=== PATIENT | male | born 1960 | race Two or more races ===

== ENCOUNTER 2018-03-31 17:23 | Emergency (ER) | payer MEDICAID ==
[~2018-03-31] VITALS: Ht 182.9 cm; Wt 113.0 kg
[~2018-03-31 17:23] MED LIST: LISI2.5T47 PO
[2018-03-31 18:47] LABS: BASOPHILS % 1.4 % (0.0-2.0); EOSINOPHILS % 2.3 % (0.0-5.0); HEMATOCRIT. 44.8 % (42.0-52.0); HEMOGLOBIN. 15.2 g/dL (14.0-18.0); LYMPHOCYTES % 28.1 % (20.0-50.0); MEAN CORPUSCULAR VOLUME 88.9 fL (80.0-94.0); MEAN PLATELET VOLUME 8.4 fl (7.4-10.4); MONOCYTES % 5.9 % (2.0-8.0); NEUTROPHILS % 62.3 % (40.0-76.0); PLATELET 246 x1000/uL (130-400); RED BLOOD CELL COUNT 5.04 mill/uL (4.7-6.1); RED CELL DISTRIBUTION WIDTH 15.1 % (11.6-14.6)
[2018-03-31 18:51] LABS: PROTHROMBIN TIME 10.4 sec (9.1-11.1)
[2018-03-31 18:57] LABS: CLARITY URINE CLEAR (CLEAR); COLOR URINE YELLOW (YELLOW); KETONES URINE NEGATIVE (NEGATIVE); LEUKOCYTE ESTERASE URINE NEGATIVE (NEGATIVE); NITRITE URINE NEGATIVE (NEGATIVE); OCCULT BLOOD URINE NEGATIVE (NEGATIVE); PROTEIN URINE TRACE (NEGATIVE); UROBILINOGEN URINE 0.2 E.U./dL (0.2-1.0)
[2018-03-31 19:06] LABS: CHLORIDE 112 mEq/L (98-107)
[2018-03-31 19:11] LABS: ETHANOL BLOOD 258 mg/dL
[2018-03-31] MEDS ORDERED: LACTULOSE 20G/30ML UDC PO ONE (19:15)
[2018-03-31 19:21] LABS: *AMPHETAMINES SCREEN URINE NEGATIVE (NEGATIVE); *BARBITURATES SCREEN URINE NEGATIVE (NEGATIVE); *BENZODIAZEPINES SCREEN URINE NEGATIVE (NEGATIVE); *COCAINE SCREEN URINE NEGATIVE (NEGATIVE); METHADONE URINE SCREEN NEGATIVE (NEGATIVE); OPIATES URINE SCREEN NEGATIVE (NEGATIVE); PHENCYCLIDINE URINE SCREEN NEGATIVE (NEGATIVE)
[2018-03-31 19:22] LABS: CANNABINOID URINE SCREEN NEGATIVE (NEGATIVE)
[2018-03-31 20:39] VITALS: BP 146/82
== END 2018-03-31 20:54 | disposition home or self-care (01) ==
LOC: ER 17:23
DX: F10.129 Alcohol abuse with intoxication, unspecified (principal); Y90.8 Blood alcohol level of 240 mg/100 ml or more; R20.0 Anesthesia of skin; I10 Essential (primary) hypertension; Z95.1 Presence of aortocoronary bypass graft; Z98.84 Bariatric surgery status
CPT/HCPCS: 36415; 70450; 80053; 80305; 81003; 82140; 82962; 84484; 85025; 85610; 93005; 99284; G0482

== ENCOUNTER 2019-07-08 09:10 | Emergency (ER) | payer MEDICAID ==
[~2019-07-08] VITALS: Ht 175.3 cm; Wt 104.0 kg
[2019-07-08 09:43] VITALS: BP 170/100
[2019-07-08] MEDS ORDERED: IBUPROFEN 600MG TABLET PO ONE (11:15)
[2019-07-08] MEDS ORDERED: DIAZEPAM 5 MG TABLET PO ONE (11:15)
== END 2019-07-08 12:42 | disposition home or self-care (01) ==
LOC: ER 09:10
DX: M54.5 Low back pain (principal); I11.9 Hypertensive heart disease without heart failure; Z95.1 Presence of aortocoronary bypass graft; Z98.84 Bariatric surgery status; Z79.899 Other long term (current) drug therapy
CPT/HCPCS: 72100; 99283

== ENCOUNTER 2019-07-13 16:58 | Inpatient (IN) | payer MEDICAID ==
[~2019-07-13] VITALS: Ht 175.3 cm; Wt 104.3 kg
[2019-07-13 19:28] LABS: CHLORIDE 106 mEq/L (98-107)
[2019-07-13 19:29] LABS: PROTHROMBIN TIME 10.6 sec (9.6-11.0)
[2019-07-13 19:41] LABS: BASOPHILS % 1.3 % (0.0-2.0); EOSINOPHILS % 3.3 % (0.0-5.0); HEMATOCRIT. 43.3 % (42.0-52.0); HEMOGLOBIN. 14.8 g/dL (14.0-18.0); LYMPHOCYTES % 21.2 % (20.0-50.0); MEAN CORPUSCULAR HEMOGLOBIN 30.4 pg (28.0-32.0); MEAN CORPUSCULAR VOLUME 88.8 fL (80.0-94.0); MEAN PLATELET VOLUME 8.5 fl (7.4-10.4); MONOCYTES % 9.4 % (2.0-8.0); NEUTROPHILS % 64.8 % (40.0-76.0); PLATELET 226 x1000/uL (130-400); RED BLOOD CELL COUNT 4.88 mill/uL (4.7-6.1); RED CELL DISTRIBUTION WIDTH 14.5 % (11.6-14.6)
[2019-07-13 21:47] LABS: CLARITY URINE CLEAR (CLEAR); COLOR URINE YELLOW (YELLOW); KETONES URINE NEGATIVE (NEGATIVE); LEUKOCYTE ESTERASE URINE NEGATIVE (NEGATIVE); NITRITE URINE NEGATIVE (NEGATIVE); OCCULT BLOOD URINE NEGATIVE (NEGATIVE); PROTEIN URINE TRACE (NEGATIVE)
[2019-07-13] MEDS ORDERED: SODIUM CHLORIDE 0.9% 1,000 ML IV ONE (22:53)
[2019-07-13] MEDS ORDERED: MORPHINE SULFATE 4 MG/ML CPJ (NOT FOR IM USE) IV STA (22:53)
[2019-07-13] MEDS ORDERED: ONDANSETRON HCL 4MG/2ML INJ IV STA (22:53)
[2019-07-14] MEDS ORDERED: CLONIDINE 0.2MG TABLET PO ONE (00:15)
[2019-07-14] MEDS: HYDRALAZINE 20MG/ML VIAL IV PRN (01:50)
[2019-07-14] MEDS: MORPHINE SULFATE 4 MG/ML CPJ (NOT FOR IM USE) IV PRN ×5 (05:33→23:07)
[2019-07-14] MEDS ORDERED: CLONIDINE 0.1MG TABLET PO PRN (08:45)
[2019-07-14] MEDS ORDERED: ONDANSETRON HCL 4MG/2ML INJ IV PRN (08:45)
[2019-07-14] MEDS ORDERED: IPRATROPIUM/ALBUTEROL 0.5-3(2.5)MG/3ML NEB HHN PRN (08:45)
[2019-07-14] MEDS ORDERED: ENOXAPARIN 40MG/0.4ML SYR SUBCUT SCH (08:45)
[2019-07-14] MEDS ORDERED: ENOXAPARIN 30MG/0.3ML SYR SUBCUT SCH (09:30)
[2019-07-14] MEDS: DOCUSATE SODIUM 100MG CAPSULE PO SCH (21:00)
[2019-07-14 21:15] VITALS: BP 170/98
[2019-07-15] VITALS: BP 139/89
[2019-07-15] MEDS ORDERED: LISI40TA4 PO (02:03)
[2019-07-15 04:00] VITALS: BP 150/90
[2019-07-15] MEDS: MORPHINE SULFATE 4 MG/ML CPJ (NOT FOR IM USE) IV PRN ×3 (04:54→21:12)
[2019-07-15] MEDS: ENOXAPARIN 100MG/ML SYR SUBCUT SCH (05:03)
[2019-07-15 08:00] VITALS: BP 162/122
[2019-07-15] MEDS: HYDRALAZINE 20MG/ML VIAL IV PRN (08:16)
[2019-07-15] MEDS: DOCUSATE SODIUM 100MG CAPSULE PO SCH ×2 (08:34→17:00)
[2019-07-15 08:44] LABS: BASOPHILS % 1.4 % (0.0-2.0); EOSINOPHILS % 2.9 % (0.0-5.0); HEMATOCRIT. 41.8 % (42.0-52.0); HEMOGLOBIN. 14.4 g/dL (14.0-18.0); LYMPHOCYTES % 20.3 % (20.0-50.0); MEAN CORPUSCULAR HEMOGLOBIN 30.6 pg (28.0-32.0); MEAN CORPUSCULAR VOLUME 89.1 fL (80.0-94.0); MEAN PLATELET VOLUME 8.6 fl (7.4-10.4); MONOCYTES % 9.3 % (2.0-8.0); NEUTROPHILS % 66.1 % (40.0-76.0); PLATELET 216 x1000/uL (130-400); RED BLOOD CELL COUNT 4.69 mill/uL (4.7-6.1); RED CELL DISTRIBUTION WIDTH 14.7 % (11.6-14.6)
[2019-07-15 09:11] LABS: CHLORIDE 106 mEq/L (98-107); LDL CHOLESTEROL 71 mg/dL (5-100)
[2019-07-15 09:15] LABS: HDL CHOLESTEROL 31 mg/dL (40-59)
[2019-07-15] MEDS ORDERED: POTASSIUM CHLORIDE 20MEQ TABLET SR PO NR (11:45)
[2019-07-15] MEDS ORDERED: AMLODIPINE 5MG TABLET PO NR (11:45)
[2019-07-15 12:00] VITALS: BP 161/113
[2019-07-15 14:01] LABS: HEPATITIS B SURFACE ANTIGEN NEGATIVE
[2019-07-15] MEDS: CLONIDINE 0.1MG TABLET PO SCH ×3 (14:06→21:11)
[2019-07-15 14:30] LABS: HEPATITIS A AB IGM NEGATIVE (NEGATIVE)
[2019-07-15] MEDS ORDERED: SIMETHICONE 80MG TABLET CHEW PO PRN (15:15)
[2019-07-15 16:00] VITALS: BP 144/100
[2019-07-15 20:00] VITALS: BP 141/82
[2019-07-15] MEDS: AMLODIPINE 5MG TABLET PO SCH (21:11)
[2019-07-16] VITALS (7 sets, daily range): BP systolic 126–151; BP diastolic 85–102
[2019-07-16] MEDS: HYDROCODONE/ACETAMINOPHEN 5/325MG TABLET PO PRN ×2 (02:48→08:22)
[2019-07-16 06:21] LABS: HEMATOCRIT. 39.5 % (42.0-52.0); HEMOGLOBIN. 13.7 g/dL (14.0-18.0); LYMPHOCYTES % 20.9 % (20.0-50.0); MEAN CORPUSCULAR HEMOGLOBIN 30.8 pg (28.0-32.0); MEAN CORPUSCULAR VOLUME 88.6 fL (80.0-94.0); MEAN PLATELET VOLUME 8.2 fl (7.4-10.4); MONOCYTES % 13.5 % (2.0-8.0); NEUTROPHILS % 60.6 % (40.0-76.0); PLATELET 201 x1000/uL (130-400); RED BLOOD CELL COUNT 4.45 mill/uL (4.7-6.1); RED CELL DISTRIBUTION WIDTH 14.3 % (11.6-14.6)
[2019-07-16] MEDS: ENOXAPARIN 100MG/ML SYR SUBCUT SCH (07:40)
[2019-07-16] MEDS: CLONIDINE 0.1MG TABLET PO SCH ×3 (07:40→21:33)
[2019-07-16 08:04] LABS: CHLORIDE 105 mEq/L (98-107)
[2019-07-16] MEDS: DOCUSATE SODIUM 250MG CAPSULE PO SCH ×2 (08:21→17:23)
[2019-07-16] MEDS: AMLODIPINE 5MG TABLET PO SCH ×2 (08:22→21:33)
[2019-07-16] MEDS ORDERED: POTASSIUM CHLORIDE 20MEQ TABLET SR PO NR (12:00)
[2019-07-16] MEDS: CYCLOBENZAPRINE 10MG TABLET PO PRN (17:24)
[2019-07-17] VITALS (7 sets, daily range): BP systolic 117–153; BP diastolic 69–115
[2019-07-17] MEDS: HYDRALAZINE 20MG/ML VIAL IV PRN (00:04)
[2019-07-17] MEDS: CYCLOBENZAPRINE 10MG TABLET PO PRN ×2 (00:09→22:16)
[2019-07-17] MEDS: CLONIDINE 0.1MG TABLET PO SCH ×3 (06:13→21:03)
[2019-07-17] MEDS: ENOXAPARIN 100MG/ML SYR SUBCUT SCH (06:13)
[2019-07-17 06:50] LABS: BASOPHILS % 1.3 % (0.0-2.0); EOSINOPHILS % 4.6 % (0.0-5.0); HEMATOCRIT. 39.7 % (42.0-52.0); HEMOGLOBIN. 13.7 g/dL (14.0-18.0); LYMPHOCYTES % 21.9 % (20.0-50.0); MEAN CORPUSCULAR HEMOGLOBIN 30.6 pg (28.0-32.0); MEAN CORPUSCULAR VOLUME 88.7 fL (80.0-94.0); MEAN PLATELET VOLUME 8.6 fl (7.4-10.4); MONOCYTES % 13.2 % (2.0-8.0); PLATELET 214 x1000/uL (130-400); RED BLOOD CELL COUNT 4.48 mill/uL (4.7-6.1); RED CELL DISTRIBUTION WIDTH 14.5 % (11.6-14.6)
[2019-07-17 07:29] LABS: CHLORIDE 107 mEq/L (98-107)
[2019-07-17] MEDS: DOCUSATE SODIUM 250MG CAPSULE PO SCH ×2 (08:19→18:39)
[2019-07-17] MEDS: AMLODIPINE 5MG TABLET PO SCH (08:19)
[2019-07-17] MEDS: HYDROCODONE/ACETAMINOPHEN 5/325MG TABLET PO PRN ×2 (11:46→21:04)
[2019-07-17] MEDS ORDERED: POTASSIUM CHLORIDE 20MEQ TABLET SR PO SCH (13:45)
[2019-07-17] MEDS: HYDRALAZINE HCL 100MG TABLET PO SCH ×2 (14:03→21:03)
[2019-07-17] MEDS ORDERED: POTASSIUM CHLORIDE 20MEQ TABLET SR PO ONE (14:45)
[2019-07-17] MEDS: AMIODARONE HCL 200 MG TABLET PO SCH ×2 (16:32→21:03)
[2019-07-17] MEDS: DILTIAZEM HCL 90MG TABLET PO SCH (18:39)
[2019-07-18] VITALS: BP_SYST 130; BP_DIAS 130; BP_DIAS 64
[2019-07-18] MEDS: DILTIAZEM HCL 90MG TABLET PO SCH ×3 (00:37→12:53)
[2019-07-18 04:00] VITALS: BP 111/64
[2019-07-18 05:30] VITALS: BP 113/74
[2019-07-18] MEDS: ENOXAPARIN 100MG/ML SYR SUBCUT SCH (05:44)
[2019-07-18] MEDS: CLONIDINE 0.1MG TABLET PO SCH ×2 (05:47→13:25)
[2019-07-18] MEDS: HYDRALAZINE HCL 100MG TABLET PO SCH ×2 (05:48→13:24)
[2019-07-18 06:52] LABS: EOSINOPHILS % 4.6 % (0.0-5.0); HEMATOCRIT. 38.6 % (42.0-52.0); HEMOGLOBIN. 12.9 g/dL (14.0-18.0); LYMPHOCYTES % 21.5 % (20.0-50.0); MEAN CORPUSCULAR HEMOGLOBIN 30.4 pg (28.0-32.0); MEAN CORPUSCULAR VOLUME 90.6 fL (80.0-94.0); MEAN PLATELET VOLUME 8.5 fl (7.4-10.4); MONOCYTES % 13.2 % (2.0-8.0); NEUTROPHILS % 59.7 % (40.0-76.0); PLATELET 230 x1000/uL (130-400); RED BLOOD CELL COUNT 4.26 mill/uL (4.7-6.1); RED CELL DISTRIBUTION WIDTH 14.8 % (11.6-14.6)
[2019-07-18 06:59] LABS: CHLORIDE 107 mEq/L (98-107)
[2019-07-18 08:00] VITALS: BP 121/86
[2019-07-18] MEDS: AMIODARONE HCL 200 MG TABLET PO SCH (08:01)
[2019-07-18] MEDS: DOCUSATE SODIUM 250MG CAPSULE PO SCH (08:01)
[2019-07-18 12:00] VITALS: BP 129/77
[2019-07-18] MEDS ORDERED: AMI2 PO (12:32)
[2019-07-18] MEDS ORDERED: DILT360T13 MT (12:32)
[2019-07-18] MEDS ORDERED: CLON0.1T14 PO (12:32)
[2019-07-18 14:12] VITALS: BP 129/77
== END 2019-07-18 14:45 | disposition home or self-care (01) ==
LOC: ER 17:02 → 6WST 22:40 → EDBEDREQ 22:42 → EDBEDREQTM 22:42 → ENRESERV 22:46 → CANRESERV 22:46 → EDBEDREQDT 07-14 05:08 → EDBEDREQTM 07-14 05:08 → EDBEDREQSVC 07-14 05:08 → ENRESERV 07-14 20:38
PROVIDERS: ADMIT Internal Medicine; ATTEND Internal Medicine
DX: K80.70 Calculus of gallbladder and bile duct without cholecystitis without obstruction (principal); K76.0 Fatty (change of) liver, not elsewhere classified; I50.9 Heart failure, unspecified; I13.0 Hypertensive heart and chronic kidney disease with heart failure and stage 1 through stage 4 chronic kidney disease, or unspecified chronic kidney disease; I48.92 Unspecified atrial flutter; I48.0 Paroxysmal atrial fibrillation; M62.838 Other muscle spasm; E66.09 Other obesity due to excess calories; E78.5 Hyperlipidemia, unspecified; F17.210 Nicotine dependence, cigarettes, uncomplicated; J44.9 Chronic obstructive pulmonary disease, unspecified; N18.9 Chronic kidney disease, unspecified; I73.9 Peripheral vascular disease, unspecified; E78.1 Pure hyperglyceridemia; E87.6 Hypokalemia; Z79.01 Long term (current) use of anticoagulants; Z86.718 Personal history of other venous thrombosis and embolism; Z82.3 Family history of stroke; Z82.49 Family history of ischemic heart disease and other diseases of the circulatory system; Z95.1 Presence of aortocoronary bypass graft; Z98.84 Bariatric surgery status; Z68.34 Body mass index [BMI] 34.0-34.9, adult
CPT/HCPCS: 36415; 74176; 76700; 80048; 80053; 80061; 80307; 81003; 83735; 84100; 84443; 84484; 85025; 86705; 86709; 86803; 87340; 93005; 93306; 93970; 96374; 97162; 99291; J0360; J1650; J2270; J7030

== ENCOUNTER 2021-11-19 15:52 | Inpatient (IN) | payer MEDICAID, OTHER ==
[~2021-11-19] VITALS: Ht 175.3 cm; Wt 96.0 kg
[~2021-11-19 15:52] MED LIST changes: +AMI2 PO; +CLON0.1T14 PO; +DILT360T13 MT; -LISI2.5T47 PO
[2021-11-19] MEDS ORDERED: DILTIAZEM HCL 5MG/ML 5ML VIAL IV ONE (17:00)
[2021-11-19 17:54] LABS: BASOPHILS % 0.9 % (0.0-2.0); EOSINOPHILS % 2.4 % (0.0-5.0); LYMPHOCYTES % 14.8 % (20.0-50.0); MEAN CORPUSCULAR HEMOGLOBIN 29.9 pg (28.0-32.0); MEAN CORPUSCULAR VOLUME 89.8 fL (80.0-94.0); MEAN PLATELET VOLUME 7.9 fl (7.4-10.4); MONOCYTES % 10.9 % (2.0-8.0); PLATELET 191 x1000/uL (130-400); RED BLOOD CELL COUNT 4.68 mill/uL (4.7-6.1); RED CELL DISTRIBUTION WIDTH 15.8 % (11.6-14.6)
[2021-11-19 18:02] LABS: CHLORIDE 111 mEq/L (98-107)
[2021-11-19 18:03] LABS: INR 1.1; PROTHROMBIN TIME 11.5 sec (9.6-11.0)
[2021-11-19] MEDS ORDERED: DILTIAZEM HCL 30MG TABLET PO ONE (18:45)
[2021-11-19] MEDS ORDERED: ASPIRIN 325MG TABLET PO ONE (19:00)
[2021-11-19] MEDS ORDERED: FUROSEMIDE 40MG/4ML VIAL IVP ONE (19:15)
[2021-11-20 02:00] VITALS: BP 191/136
[2021-11-20 04:00] VITALS: BP 183/139
[2021-11-20] MEDS ORDERED: NALOXONE HCL 0.4MG/ML VIAL IV PRN (04:00)
[2021-11-20] MEDS: CLONIDINE 0.1MG TABLET PO PRN ×2 (04:09→20:13)
[2021-11-20] MEDS: HYDROCODONE/ACETAMINOPHEN 5/325MG TABLET PO PRN ×3 (04:09→20:10)
[2021-11-20 08:00] VITALS: BP 196/140
[2021-11-20] MEDS: FUROSEMIDE 40MG/4ML VIAL IVP SCH ×2 (08:21→20:10)
[2021-11-20] MEDS ORDERED: LISINOPRIL 10MG TABLET PO SCH (09:00)
[2021-11-20 09:48] LABS: BASOPHILS % 0.9 % (0.0-2.0); EOSINOPHILS % 2.7 % (0.0-5.0); HEMATOCRIT. 43.3 % (42.0-52.0); HEMOGLOBIN. 14.6 g/dL (14.0-18.0); LYMPHOCYTES % 13.9 % (20.0-50.0); MEAN CORPUSCULAR HEMOGLOBIN 29.9 pg (28.0-32.0); MEAN CORPUSCULAR VOLUME 88.5 fL (80.0-94.0); MEAN PLATELET VOLUME 7.9 fl (7.4-10.4); MONOCYTES % 11.6 % (2.0-8.0); NEUTROPHILS % 70.9 % (40.0-76.0); PLATELET 195 x1000/uL (130-400)
[2021-11-20 09:58] LABS: CHLORIDE 107 mEq/L (98-107)
[2021-11-20 12:00] VITALS: BP 134/99
[2021-11-20] MEDS ORDERED: POTASSIUM CHLORIDE 20MEQ TABLET SR PO SCH (13:45)
[2021-11-20] MEDS ORDERED: DIGOXIN 125MCG TABLET PO SCH (18:00)
[2021-11-20] MEDS: ENOXAPARIN 30MG/0.3ML SYR SUBCUT SCH ×2 (18:48→20:10)
[2021-11-20 20:00] VITALS: BP 205/133
[2021-11-20] MEDS: HYDRALAZINE 20MG/ML VIAL IV PRN (23:38)
[2021-11-21] VITALS (7 sets, daily range): BP systolic 125–221; BP diastolic 104–145
[2021-11-21] MEDS ORDERED: LISI40TA13 PO (02:01)
[2021-11-21] MEDS ORDERED: blood thinner (02:02)
[2021-11-21] MEDS: CLONIDINE 0.1MG TABLET PO PRN ×2 (02:28→14:11)
[2021-11-21] MEDS: HYDROCODONE/ACETAMINOPHEN 5/325MG TABLET PO PRN ×2 (02:29→09:05)
[2021-11-21 06:20] LABS: BASOPHILS % 0.6 % (0.0-2.0); EOSINOPHILS % 0.5 % (0.0-5.0); HEMATOCRIT. 41.3 % (42.0-52.0); HEMOGLOBIN. 13.9 g/dL (14.0-18.0); LYMPHOCYTES % 9.5 % (20.0-50.0); MEAN CORPUSCULAR HEMOGLOBIN 29.9 pg (28.0-32.0); MEAN CORPUSCULAR VOLUME 88.6 fL (80.0-94.0); MEAN PLATELET VOLUME 8.1 fl (7.4-10.4); MONOCYTES % 14.9 % (2.0-8.0); NEUTROPHILS % 74.5 % (40.0-76.0); PLATELET 202 x1000/uL (130-400); RED BLOOD CELL COUNT 4.67 mill/uL (4.7-6.1); RED CELL DISTRIBUTION WIDTH 15.8 % (11.6-14.6)
[2021-11-21 06:24] LABS: CHLORIDE 105 mEq/L (98-107)
[2021-11-21] MEDS: FUROSEMIDE 40MG/4ML VIAL IVP SCH ×2 (09:00→21:38)
[2021-11-21] MEDS: LISINOPRIL 40MG TABLET PO SCH (09:03)
[2021-11-21] MEDS: ENOXAPARIN 30MG/0.3ML SYR SUBCUT SCH ×2 (09:04→21:39)
[2021-11-21] MEDS ORDERED: HYDRALAZINE HCL 25MG TABLET PO SCH ×2 (09:30→17:30)
[2021-11-21] MEDS: MORPHINE SULFATE 2 MG/ML CPJ (NOT FOR IM USE) IV PRN ×3 (11:47→21:39)
[2021-11-21] MEDS: HYDRALAZINE 20MG/ML VIAL IV PRN ×2 (13:44→21:40)
[2021-11-21] MEDS ORDERED: MORPHINE SULFATE 2 MG/ML CPJ (NOT FOR IM USE) IV NR (16:30)
[2021-11-21] MEDS: DILTIAZEM HCL 60MG TABLET PO SCH (16:49)
[2021-11-21] MEDS: HYDRALAZINE HCL 100MG TABLET PO SCH (17:28)
[2021-11-21] MEDS: DIGOXIN 250MCG TABLET PO SCH (17:28)
[2021-11-21] MEDS ORDERED: DILTIAZEM HCL 60MG TABLET PO SCH (18:00)
[2021-11-21 18:19] LABS: T4 FREE 1.3 ng/dL (0.76-1.46)
[2021-11-21] MEDS: CLONIDINE 0.2MG TABLET PO SCH (21:39)
[2021-11-22] VITALS: BP 138/93
[2021-11-22] MEDS: DILTIAZEM HCL 60MG TABLET PO SCH ×2 (00:46→05:56)
[2021-11-22] MEDS: HYDRALAZINE HCL 100MG TABLET PO SCH ×3 (03:36→17:40)
[2021-11-22 04:00] VITALS: BP 130/94
[2021-11-22] MEDS: CLONIDINE 0.2MG TABLET PO SCH ×3 (05:57→21:02)
[2021-11-22 07:39] LABS: HEMATOCRIT. 41.6 % (42.0-52.0); HEMOGLOBIN. 13.9 g/dL (14.0-18.0); MEAN CORPUSCULAR HEMOGLOBIN 29.6 pg (28.0-32.0); MEAN CORPUSCULAR VOLUME 88.8 fL (80.0-94.0); MEAN PLATELET VOLUME 8.7 fl (7.4-10.4); PLATELET 209 x1000/uL (130-400); RED BLOOD CELL COUNT 4.69 mill/uL (4.7-6.1); RED CELL DISTRIBUTION WIDTH 16.3 % (11.6-14.6)
[2021-11-22 07:46] LABS: CHLORIDE 103 mEq/L (98-107)
[2021-11-22 08:00] VITALS: BP 138/87
[2021-11-22] MEDS ORDERED: POTASSIUM CHLORIDE 20MEQ TABLET SR PO NR (09:15)
[2021-11-22] MEDS: ENOXAPARIN 30MG/0.3ML SYR SUBCUT SCH ×2 (09:30→21:01)
[2021-11-22] MEDS: FUROSEMIDE 40MG/4ML VIAL IVP SCH ×2 (09:30→21:01)
[2021-11-22] MEDS: HYDROCODONE/ACETAMINOPHEN 5/325MG TABLET PO PRN (09:31)
[2021-11-22] MEDS: LISINOPRIL 40MG TABLET PO SCH (09:31)
[2021-11-22 11:05] LABS: PLATELET ESTIMATE NORMAL
[2021-11-22 12:00] VITALS: BP 157/76
[2021-11-22] MEDS: CLONIDINE 0.1MG TABLET PO PRN (13:37)
[2021-11-22] MEDS: DILTIAZEM HCL 90MG TABLET PO SCH ×2 (13:37→17:40)
[2021-11-22] MEDS: MORPHINE SULFATE 2 MG/ML CPJ (NOT FOR IM USE) IV PRN (13:38)
[2021-11-22 16:00] VITALS: BP 133/74
[2021-11-22] MEDS: DIGOXIN 250MCG TABLET PO SCH (17:40)
[2021-11-22] MEDS: ACETAMINOPHEN 500MG TABLET PO PRN (17:41)
[2021-11-22] MEDS ORDERED: SPIR25TA6 PO (17:53)
[2021-11-22 20:00] VITALS: BP 136/76
[2021-11-23] VITALS: BP 121/68
[2021-11-23] MEDS: DILTIAZEM HCL 90MG TABLET PO SCH ×4 (00:54→17:05)
[2021-11-23] MEDS: HYDRALAZINE HCL 100MG TABLET PO SCH ×3 (00:55→17:05)
[2021-11-23 04:00] VITALS: BP 122/72
[2021-11-23] MEDS: CLONIDINE 0.2MG TABLET PO SCH ×3 (05:39→20:21)
[2021-11-23 05:41] LABS: HEMATOCRIT. 40.6 % (42.0-52.0); HEMOGLOBIN. 13.7 g/dL (14.0-18.0); MEAN CORPUSCULAR HEMOGLOBIN 29.9 pg (28.0-32.0); MEAN CORPUSCULAR VOLUME 88.6 fL (80.0-94.0); PLATELET 235 x1000/uL (130-400); RED BLOOD CELL COUNT 4.59 mill/uL (4.7-6.1)
[2021-11-23 07:47] VITALS: BP 116/69
[2021-11-23] MEDS: FUROSEMIDE 40MG/4ML VIAL IVP SCH (08:14)
[2021-11-23] MEDS: ACETAMINOPHEN 500MG TABLET PO PRN ×2 (08:15→21:22)
[2021-11-23] MEDS: ENOXAPARIN 30MG/0.3ML SYR SUBCUT SCH (08:15)
[2021-11-23] MEDS: LISINOPRIL 40MG TABLET PO SCH (08:15)
[2021-11-23 11:13] LABS: PLATELET ESTIMATE NORMAL
[2021-11-23 11:33] VITALS: BP 111/75
[2021-11-23 15:40] VITALS: BP 115/73
[2021-11-23 17:02] LABS: CLARITY URINE CLOUDY (CLEAR); COLOR URINE DARK YELLOW (YELLOW); KETONES URINE TRACE (NEGATIVE); LEUKOCYTE ESTERASE URINE NEGATIVE (NEGATIVE); NITRITE URINE NEGATIVE (NEGATIVE); OCCULT BLOOD URINE NEGATIVE (NEGATIVE); PROTEIN URINE 2+ (NEGATIVE); SPECIFIC GRAVITY URINE 1.018 (1.005-1.030)
[2021-11-23] MEDS: DIGOXIN 250MCG TABLET PO SCH (17:04)
[2021-11-23] MEDS: ENOXAPARIN 100MG/ML SYR SUBCUT SCH (17:04)
[2021-11-23 20:00] VITALS: BP 120/71
[2021-11-24] VITALS: BP 134/83
[2021-11-24] MEDS: DILTIAZEM HCL 90MG TABLET PO SCH ×4 (00:50→17:10)
[2021-11-24] MEDS: HYDRALAZINE HCL 100MG TABLET PO SCH ×3 (02:00→17:10)
[2021-11-24 04:00] VITALS: BP 154/83
[2021-11-24] MEDS: ENOXAPARIN 100MG/ML SYR SUBCUT SCH ×2 (05:52→17:10)
[2021-11-24] MEDS: CLONIDINE 0.2MG TABLET PO SCH ×2 (05:52→13:07)
[2021-11-24 07:38] LABS: HEMATOCRIT. 40.4 % (42.0-52.0); HEMOGLOBIN. 13.4 g/dL (14.0-18.0); MEAN CORPUSCULAR HEMOGLOBIN 29.5 pg (28.0-32.0); MEAN CORPUSCULAR VOLUME 88.7 fL (80.0-94.0); MEAN PLATELET VOLUME 9.2 fl (7.4-10.4); PLATELET 295 x1000/uL (130-400); RED BLOOD CELL COUNT 4.56 mill/uL (4.7-6.1); RED CELL DISTRIBUTION WIDTH 16.3 % (11.6-14.6)
[2021-11-24 08:09] VITALS: BP 134/81
[2021-11-24 08:25] LABS: DIGOXIN 1.2 ng/mL (0.9-2.0); PHOSPHORUS 3.8 mg/dL (2.5-4.9)
[2021-11-24] MEDS ORDERED: FUROSEMIDE 40MG/4ML VIAL IVP SCH (09:00)
[2021-11-24 09:15] LABS: PLATELET ESTIMATE NORMAL
[2021-11-24] MEDS ORDERED: POTASSIUM CHLORIDE 20MEQ TABLET SR PO NR (09:45)
[2021-11-24] MEDS: ACETAMINOPHEN 500MG TABLET PO PRN (11:27)
[2021-11-24] MEDS ORDERED: FUROSEMIDE 40MG TABLET PO SCH (11:30)
[2021-11-24 12:00] VITALS: BP 129/74
[2021-11-24 15:49] VITALS: BP 128/73
[2021-11-24] MEDS ORDERED: APIX5TAB MT (16:26)
[2021-11-24] MEDS ORDERED: HYDR100T26 PO (16:26)
[2021-11-24] MEDS ORDERED: CLON0.2T PO (16:26)
[2021-11-24] MEDS ORDERED: FURO40TA5 PO (16:26)
[2021-11-24 16:46] VITALS: BP 128/73
[2021-11-24] MEDS: DIGOXIN 250MCG TABLET PO SCH (17:10)
[2021-11-25 13:07] LABS: ANTI-NUCLEAR ANTIBODIES DIRECT Positive (Negative)
[2021-11-26 13:07] LABS: *CREATININE RANDOM URINE 181.5 mg/dL (Not Estab.); MICROALBUMIN RANDOM URINE 225.9 ug/mL (Not Estab.)
[2021-11-27 13:06] LABS: ANTI-MYELOPEROXIDASE AB < 0.2 units (0.0-0.9); ANTI-PROTEINASE 3 ABS 0.5 units (0.0-0.9); ATYPICAL P-ANCA <1:20 titer (Neg:<1:20); CYTOPLASMIC C-ANCA <1:20 titer (Neg:<1:20); PERINUCLEAR P-ANCA <1:20 titer (Neg:<1:20)
== END 2021-11-24 20:07 | disposition home or self-care (01) | DRG 194 ==
LOC: ER 15:52 → MICUSO 19:17 → 7WST 11-20 02:38
PROVIDERS: ADMIT Internal Medicine; ATTEND Internal Medicine
DX: I13.0 Hypertensive heart and chronic kidney disease with heart failure and stage 1 through stage 4 chronic kidney disease, or unspecified chronic kidney disease (principal); I72.3 Aneurysm of iliac artery; N17.9 Acute kidney failure, unspecified; I42.0 Dilated cardiomyopathy; I48.0 Paroxysmal atrial fibrillation; Z20.822 Contact with and (suspected) exposure to COVID-19; I50.41 Acute combined systolic (congestive) and diastolic (congestive) heart failure; J90 Pleural effusion, not elsewhere classified; I73.9 Peripheral vascular disease, unspecified; E78.5 Hyperlipidemia, unspecified; J44.9 Chronic obstructive pulmonary disease, unspecified; E87.6 Hypokalemia; Q21.9 Congenital malformation of cardiac septum, unspecified; N18.9 Chronic kidney disease, unspecified; R10.9 Unspecified abdominal pain; N40.0 Benign prostatic hyperplasia without lower urinary tract symptoms; F10.10 Alcohol abuse, uncomplicated; F17.200 Nicotine dependence, unspecified, uncomplicated; Z86.718 Personal history of other venous thrombosis and embolism; Z98.84 Bariatric surgery status; Z95.1 Presence of aortocoronary bypass graft; Z91.09 Other allergy status, other than to drugs and biological substances; Z59.02 Unsheltered homelessness
CPT/HCPCS: 36415; 71045; 74176; 76700; 80048; 80053; 80061; 80162; 81003; 82043; 82570; 83520; 83735; 83880; 84100; 84153; 84439; 84443; 84480; 84484; 85025; 86038; 86256; 86850; 86900; 87426; 93005; 93306; 93970; 99291; J0360; J1650; J1940; J2270; J3490; G0103

== ENCOUNTER 2022-08-11 09:17 | Emergency (ER) | payer MEDICAID, OTHER ==
[~2022-08-11] VITALS: Ht 175.3 cm; Wt 81.8 kg
[~2022-08-11 09:17] MED LIST changes: -AMI2 PO; +APIX5TAB MT; -CLON0.1T14 PO; +CLON0.2T PO; +FURO40TA5 PO; +HYDR100T26 PO; +blood thinner
[2022-08-11 09:25] VITALS: BP 194/144
[2022-08-11] MEDS ORDERED: NAP5EC PO (09:59)
[2022-08-12] MEDS ORDERED: IBUP-2029 PO (08:23)
== END 2022-08-11 11:22 | disposition home or self-care (01) ==
LOC: ER 09:17
DX: M25.562 Pain in left knee (principal); I10 Essential (primary) hypertension; Z98.890 Other specified postprocedural states
CPT/HCPCS: 73562; 99283

== ENCOUNTER 2022-12-09 20:49 | Inpatient (IN) | payer MEDICAID, OTHER ==
[~2022-12-09] VITALS: Ht 175.3 cm; Wt 71.8 kg
[~2022-12-09 20:49] MED LIST changes: +IBUP-2029 PO; +NAP5EC PO
[2022-12-09 23:46] LABS: BASOPHILS % 1.4 % (0.0-2.0); EOSINOPHILS % 3.1 % (0.0-5.0); HEMATOCRIT. 40.6 % (42.0-52.0); HEMOGLOBIN. 12.7 g/dL (14.0-18.0); LYMPHOCYTES % 26.9 % (20.0-50.0); MEAN CORPUSCULAR HEMOGLOBIN 28.6 pg (28.0-32.0); MEAN CORPUSCULAR HGB CONC 31.4 g/dL (31.0-37.0); MEAN PLATELET VOLUME 7.6 fl (7.4-10.4); MONOCYTES % 11.7 % (2.0-8.0); NEUTROPHILS % 56.9 % (40.0-76.0); PLATELET 182 x1000/uL (130-400); RED BLOOD CELL COUNT 4.46 mill/uL (4.7-6.1); RED CELL DISTRIBUTION WIDTH 17.5 % (11.6-14.6); WHITE BLOOD COUNT 4.3 x1000/uL (4.5-11.0)
[2022-12-09 23:58] LABS: CHLORIDE 114 mEq/L (98-107); INDEX HEMOLYSI 2 (1-3); INDEX ICTERIC 1 (1-4); INDEX LIPEMIC 1 (1-3); POTASSIUM 3.6 mEq/L (3.5-5.1); SODIUM 145 mEq/L (136-145)
[2022-12-10 00:07] LABS: ALANINE AMINOTRANSFERASE 13 IU/L (13-61); ALBUMIN 3.1 g/dL (3.4-5.0); ASPARTATE AMINOTRANSFERASE 13 IU/L (15-37); BILIRUBIN TOTAL 0.3 mg/dL (0.1-1.0); CALCIUM 8.1 mg/dL (8.5-10.1); CARBON DIOXIDE 22 mEq/L (21-32); CREATININE 1.4 mg/dL (0.6-1.3); ETHANOL BLOOD 23 mg/dL (-10); GLUCOSE 102 mg/dL (70-105); NT PRO B-TYPE NATRIURETIC PEP 2011 pg/mL (5-125); PROTEIN TOTAL 6.7 g/dL (6.0-8.3); TROPONIN I HIGH SENSITIVITY 13 ng/L (<78); UREA NITROGEN BLOOD 19 mg/dL (7-21)
[2022-12-10] MEDS ORDERED: NITROGLYCERIN OINT 1GM/INCH UDPKT TD NR ×2 (01:30→05:15)
[2022-12-10] MEDS ORDERED: FUROSEMIDE 40MG/4ML VIAL IV NR ×2 (01:30→05:00)
[2022-12-10 04:42] LABS: CLARITY URINE CLEAR (CLEAR); COLOR URINE DARK YELLOW (YELLOW); GLUCOSE URINE NEGATIVE (NEGATIVE); KETONES URINE TRACE (NEGATIVE); LEUKOCYTE ESTERASE URINE NEGATIVE (NEGATIVE); NITRITE URINE NEGATIVE (NEGATIVE); OCCULT BLOOD URINE NEGATIVE (NEGATIVE); PROTEIN URINE 2+ (NEGATIVE); SPECIFIC GRAVITY URINE 1.024 (1.005-1.030)
[2022-12-10 04:54] LABS: *AMPHETAMINES SCREEN URINE NEGATIVE (NEGATIVE); *BARBITURATES SCREEN URINE NEGATIVE (NEGATIVE); *BENZODIAZEPINES SCREEN URINE NEGATIVE (NEGATIVE); *COCAINE SCREEN URINE NEGATIVE (NEGATIVE); CANNABINOID URINE SCREEN NEGATIVE (NEGATIVE); ECSTASY MDMA SCREEN URINE NEGATIVE (NEGATIVE); METHADONE URINE SCREEN NEGATIVE (NEGATIVE); OPIATES URINE SCREEN NEGATIVE (NEGATIVE); PHENCYCLIDINE URINE SCREEN NEGATIVE (NEGATIVE)
[2022-12-10 04:57] LABS: BACTERIA URINE NONE SEEN; CALCIUM OXALATE CRYSTALS URINE 1+ /lpf; RBC URINE NONE SEEN /hpf (0-2); SQUAMOUS EPITHELIAL CELL URINE NONE SEEN /lpf (RARE/1+); WBC URINE NONE SEEN /hpf (0-2)
[2022-12-10] MEDS ORDERED: METOPROLOL TARTRATE 50MG TABLET PO SCH (07:30)
[2022-12-10] MEDS: HYDRALAZINE HCL 50MG TABLET PO SCH ×3 (07:30→22:06)
[2022-12-10] MEDS ORDERED: ONDANSETRON HCL 4MG/2ML INJ IV PRN (11:00)
[2022-12-10] MEDS ORDERED: FUROSEMIDE 40MG/4ML VIAL IV SCH (11:30)
[2022-12-10] MEDS: ENOXAPARIN 80MG/0.8ML SYR SUBCUT SCH ×2 (12:00→22:07)
[2022-12-10] MEDS: DILTIAZEM HCL 60MG TABLET PO SCH (13:43)
[2022-12-10] MEDS ORDERED: HYDRALAZINE 20MG/ML VIAL IV PRN (13:45)
[2022-12-10] MEDS ORDERED: HYDRALAZINE 20MG/ML VIAL IV NR (13:45)
[2022-12-10] MEDS: CLONIDINE 0.1MG TABLET PO SCH ×2 (14:00→22:06)
[2022-12-10] MEDS ORDERED: FUROSEMIDE 100MG/10ML VIAL IVP SCH (17:00)
[2022-12-10 18:00] VITALS: BP 155/96; PULSE 84; RESP 18; TEMP 96.9
[2022-12-10 19:30] VITALS: BP 151/99; PULSE 85; RESP 16; TEMP 97.7
[2022-12-10] MEDS: ACETAMINOPHEN 325MG TABLET PO PRN (22:07)
[2022-12-11] VITALS: BP 134/95; PULSE 81; RESP 19; TEMP 97.9
[2022-12-11] MEDS: DILTIAZEM HCL 60MG TABLET PO SCH ×4 (01:19→19:22)
[2022-12-11 04:00] VITALS: BP 144/106; PULSE 65; RESP 16; TEMP 97.4
[2022-12-11] MEDS ORDERED: LISI40TA13 PO (04:46)
[2022-12-11] MEDS: CLONIDINE 0.1MG TABLET PO SCH ×3 (06:26→21:40)
[2022-12-11] MEDS: HYDRALAZINE HCL 50MG TABLET PO SCH (06:26)
[2022-12-11 07:11] LABS: PROTHROMBIN TIME 11.2 sec (9.6-11.0)
[2022-12-11 07:14] LABS: EOSINOPHILS % 3.1 % (0.0-5.0); HEMATOCRIT. 40.8 % (42.0-52.0); HEMOGLOBIN. 13.9 g/dL (14.0-18.0); LYMPHOCYTES % 13.5 % (20.0-50.0); MEAN CORPUSCULAR HEMOGLOBIN 28.8 pg (28.0-32.0); MEAN CORPUSCULAR VOLUME 84.7 fL (80.0-94.0); MEAN PLATELET VOLUME 8.3 fl (7.4-10.4); MONOCYTES % 13.8 % (2.0-8.0); NEUTROPHILS % 68.6 % (40.0-76.0); PLATELET 199 x1000/uL (130-400); RED BLOOD CELL COUNT 4.82 mill/uL (4.7-6.1); RED CELL DISTRIBUTION WIDTH 16.4 % (11.6-14.6); WHITE BLOOD COUNT 5.1 x1000/uL (4.5-11.0)
[2022-12-11 07:50] LABS: CALCIUM 8.6 mg/dL (8.5-10.1); CARBON DIOXIDE 25 mEq/L (21-32); CHLORIDE 105 mEq/L (98-107); CREATININE 1.3 mg/dL (0.6-1.3); GLUCOSE 118 mg/dL (70-105); INDEX HEMOLYSI 1 (1-3); INDEX ICTERIC 1 (1-4); INDEX LIPEMIC 1 (1-3); SODIUM 141 mEq/L (136-145); UREA NITROGEN BLOOD 26 mg/dL (7-21)
[2022-12-11 08:00] VITALS: BP 128/88; PULSE 71; RESP 18; TEMP 98.4
[2022-12-11] MEDS: ENOXAPARIN 80MG/0.8ML SYR SUBCUT SCH ×2 (09:06→21:39)
[2022-12-11] MEDS ORDERED: NITROGLYCERIN OINT 1GM/INCH UDPKT TD SCH (09:15)
[2022-12-11 09:47] LABS: POTASSIUM 2.8 mEq/L (3.5-5.1)
[2022-12-11] MEDS ORDERED: POTASSIUM CHLORIDE 20MEQ TABLET SR PO SCH ×2 (10:00→13:00)
[2022-12-11 12:00] VITALS: BP 130/85; PULSE 76; RESP 18; TEMP 98
[2022-12-11] MEDS: FUROSEMIDE 100MG/10ML VIAL IVP SCH (12:58)
[2022-12-11] MEDS: HYDRALAZINE HCL 100MG TABLET PO SCH ×2 (15:48→21:40)
[2022-12-11 16:00] VITALS: BP 126/73; PULSE 82; RESP 18; TEMP 97.8
[2022-12-11] MEDS ORDERED: FURO40TA5 PO (16:40)
[2022-12-11] MEDS ORDERED: POTA-205 MT (16:40)
[2022-12-11] MEDS ORDERED: DILT360T13 MT (16:40)
[2022-12-11] MEDS ORDERED: HYDR100T26 PO (16:40)
[2022-12-11] MEDS ORDERED: APIX5TAB MT (16:40)
[2022-12-11 20:00] VITALS: BP 117/79; PULSE 77; RESP 16; TEMP 98.1
[2022-12-11] MEDS: NITROGLYCERIN OINT 1GM/INCH UDPKT TD SCH (21:40)
[2022-12-12] VITALS: BP 110/66; PULSE 74; RESP 17; TEMP 97.9
[2022-12-12] MEDS: ACETAMINOPHEN 325MG TABLET PO PRN (00:11)
[2022-12-12 04:00] VITALS: BP 143/79; PULSE 86; RESP 17; TEMP 97.9
[2022-12-12] MEDS: DILTIAZEM HCL 60MG TABLET PO SCH ×2 (06:24)
[2022-12-12] MEDS: CLONIDINE 0.1MG TABLET PO SCH (06:25)
[2022-12-12] MEDS: HYDRALAZINE HCL 100MG TABLET PO SCH (06:25)
[2022-12-12 08:00] VITALS: BP 103/71; PULSE 70; RESP 18; TEMP 97.7
[2022-12-12] MEDS: ENOXAPARIN 80MG/0.8ML SYR SUBCUT SCH (08:33)
[2022-12-12] MEDS: FUROSEMIDE 100MG/10ML VIAL IVP SCH (08:34)
[2022-12-12] MEDS: NITROGLYCERIN OINT 1GM/INCH UDPKT TD SCH (08:34)
[2022-12-12 09:24] LABS: BASOPHILS % 1.2 % (0.0-2.0); EOSINOPHILS % 2.2 % (0.0-5.0); HEMATOCRIT. 41.2 % (42.0-52.0); LYMPHOCYTES % 20.8 % (20.0-50.0); MEAN CORPUSCULAR HEMOGLOBIN 28.9 pg (28.0-32.0); MEAN CORPUSCULAR HGB CONC 33.9 g/dL (31.0-37.0); MEAN CORPUSCULAR VOLUME 85.1 fL (80.0-94.0); MONOCYTES % 11.6 % (2.0-8.0); NEUTROPHILS % 64.2 % (40.0-76.0); PLATELET 240 x1000/uL (130-400); RED BLOOD CELL COUNT 4.85 mill/uL (4.7-6.1); RED CELL DISTRIBUTION WIDTH 16.4 % (11.6-14.6); WHITE BLOOD COUNT 5.2 x1000/uL (4.5-11.0)
[2022-12-12 10:05] LABS: CALCIUM 8.4 mg/dL (8.5-10.1); CARBON DIOXIDE 23 mEq/L (21-32); CHLORIDE 109 mEq/L (98-107); GLUCOSE 121 mg/dL (70-105); INDEX HEMOLYSI 1 (1-3); INDEX ICTERIC 1 (1-4); INDEX LIPEMIC 1 (1-3); POTASSIUM 3.7 mEq/L (3.5-5.1); SODIUM 140 mEq/L (136-145); UREA NITROGEN BLOOD 27 mg/dL (7-21)
[2022-12-12 10:06] LABS: CREATININE 1.3 mg/dL (0.6-1.3)
[2022-12-12 10:13] VITALS: BP 103/71; PULSE 61; TEMP 97.7; O2SAT 98
[2022-12-12] MEDS ORDERED: HYDRALAZINE HCL 50MG TABLET PO SCH (14:00)
[2022-12-12] MEDS ORDERED: CLONIDINE 0.1MG TABLET PO SCH (18:00)
== END 2022-12-12 10:55 | disposition home or self-care (01) | DRG 194 ==
LOC: ER 20:49 → 8WST 12-10 01:27
PROVIDERS: ADMIT Internal Medicine; ATTEND Internal Medicine
DX: I13.0 Hypertensive heart and chronic kidney disease with heart failure and stage 1 through stage 4 chronic kidney disease, or unspecified chronic kidney disease (principal); E46 Unspecified protein-calorie malnutrition; G90.8 Other disorders of autonomic nervous system; D63.1 Anemia in chronic kidney disease; I73.9 Peripheral vascular disease, unspecified; Z79.01 Long term (current) use of anticoagulants; I48.19 Other persistent atrial fibrillation; I16.0 Hypertensive urgency; I50.23 Acute on chronic systolic (congestive) heart failure; J44.9 Chronic obstructive pulmonary disease, unspecified; N18.9 Chronic kidney disease, unspecified; D72.819 Decreased white blood cell count, unspecified; F17.210 Nicotine dependence, cigarettes, uncomplicated; Z98.84 Bariatric surgery status; Z86.718 Personal history of other venous thrombosis and embolism; Z68.23 Body mass index [BMI] 23.0-23.9, adult; Z82.49 Family history of ischemic heart disease and other diseases of the circulatory system; Z90.49 Acquired absence of other specified parts of digestive tract; Z82.3 Family history of stroke; Z86.73 Personal history of transient ischemic attack (TIA), and cerebral infarction without residual deficits; Z87.74 Personal history of (corrected) congenital malformations of heart and circulatory system; Q21.9 Congenital malformation of cardiac septum, unspecified; Z79.899 Other long term (current) drug therapy; Z59.01 Sheltered homelessness; Z95.1 Presence of aortocoronary bypass graft
CPT/HCPCS: 36415; 71045; 80048; 80053; 80305; 80320; 81003; 83880; 84484; 85025; 93005; 93306; 93923; 93970; 99285; J0360; J1650; J1940; G0480

== ENCOUNTER 2022-12-12 15:42 | Emergency (ER) | payer MEDICAID, OTHER ==
[~2022-12-12] VITALS: Ht 175.3 cm; Wt 82.0 kg
[~2022-12-12 15:42] MED LIST changes: +POTA-205 MT
[2022-12-12 15:50] VITALS: PULSE 85
[2022-12-12 15:53] VITALS: BP 146/82; RESP 17; TEMP 97.9; O2SAT 96
== END 2022-12-12 17:00 | disposition left against medical advice (07) ==
LOC: ER 16:05
DX: Z00.00 Encounter for general adult medical examination without abnormal findings (principal)
CPT/HCPCS: 99281

== ENCOUNTER 2022-12-12 20:24 | Emergency (ER) | payer OTHER ==
[~2022-12-12] VITALS: Ht 175.3 cm; Wt 82.2 kg
[2022-12-12 20:33] VITALS: BP 148/92; RESP 12; TEMP 98.5; O2SAT 100
[2022-12-12 20:38] VITALS: PULSE 87
== END 2022-12-12 22:57 | disposition home or self-care (01) ==
LOC: ER 20:31
DX: R68.89 Other general symptoms and signs (principal); I10 Essential (primary) hypertension; Z59.00 Homelessness unspecified; Z00.00 Encounter for general adult medical examination without abnormal findings; Z98.890 Other specified postprocedural states; Z79.899 Other long term (current) drug therapy
CPT/HCPCS: 99281

== ENCOUNTER 2022-12-14 09:08 | Emergency (ER) | payer MEDICAID, OTHER ==
[~2022-12-14] VITALS: Ht 175.3 cm; Wt 72.0 kg
[2022-12-14 09:17] VITALS: BP 156/116; PULSE 85; RESP 18; O2SAT 99
[2022-12-14 11:00] VITALS: TEMP 98.5
[2022-12-14] MEDS ORDERED: ACETAMINOPHEN 325MG TABLET PO ONE (11:00)
[2022-12-14] MEDS ORDERED: ACET-2708 MT (11:25)
== END 2022-12-14 11:53 | disposition home or self-care (01) ==
LOC: ER 09:08
DX: S82.401A Unspecified fracture of shaft of right fibula, initial encounter for closed fracture (principal); I10 Essential (primary) hypertension; Z88.8 Allergy status to other drugs, medicaments and biological substances; Z88.1 Allergy status to other antibiotic agents; Z79.899 Other long term (current) drug therapy; Z98.890 Other specified postprocedural states; W18.30XA Fall on same level, unspecified, initial encounter; Y93.89 Activity, other specified; Y92.89 Other specified places as the place of occurrence of the external cause; Y99.8 Other external cause status
CPT/HCPCS: 29515; 73610; 99283

== ENCOUNTER 2023-01-13 08:06 | Emergency (ER) | payer MEDICAID ==
[~2023-01-13] VITALS: Ht 175.3 cm; Wt 81.6 kg
[~2023-01-13 08:06] MED LIST changes: +ACET-2708 MT
[2023-01-13 08:13] VITALS: BP 209/140; PULSE 110; RESP 16; TEMP 97.9; O2SAT 99
[2023-01-13] MEDS ORDERED: LISINOPRIL 40MG TABLET PO ONE (09:00)
[2023-01-13] MEDS ORDERED: LISINOPRIL 10MG TABLET PO NR (09:00)
[2023-01-13 10:30] LABS: CHLORIDE 108 mEq/L (98-107); INDEX HEMOLYSI 1 (1-3); INDEX ICTERIC 1 (1-4); INDEX LIPEMIC 1 (1-3); POTASSIUM 3.7 mEq/L (3.5-5.1); SODIUM 140 mEq/L (136-145)
[2023-01-13 10:40] LABS: ALANINE AMINOTRANSFERASE 15 IU/L (13-61); ALBUMIN 3.4 g/dL (3.4-5.0); ASPARTATE AMINOTRANSFERASE 22 IU/L (15-37); BILIRUBIN TOTAL 0.7 mg/dL (0.1-1.0); CALCIUM 8.6 mg/dL (8.5-10.1); CARBON DIOXIDE 26 mEq/L (21-32); CREATININE 1.1 mg/dL (0.6-1.3); GLUCOSE 89 mg/dL (70-105); PROTEIN TOTAL 6.9 g/dL (6.0-8.3); TROPONIN I HIGH SENSITIVITY 9 ng/L (<78); UREA NITROGEN BLOOD 19 mg/dL (7-21)
[2023-01-13 10:48] LABS: BASOPHILS % 1.2 % (0.0-2.0); EOSINOPHILS % 1.6 % (0.0-5.0); HEMATOCRIT. 38.2 % (42.0-52.0); HEMOGLOBIN. 12.5 g/dL (14.0-18.0); LYMPHOCYTES % 16.6 % (20.0-50.0); MEAN CORPUSCULAR HEMOGLOBIN 28.1 pg (28.0-32.0); MEAN CORPUSCULAR HGB CONC 32.7 g/dL (31.0-37.0); MEAN CORPUSCULAR VOLUME 85.8 fL (80.0-94.0); MEAN PLATELET VOLUME 7.8 fl (7.4-10.4); MONOCYTES % 9.7 % (2.0-8.0); NEUTROPHILS % 70.9 % (40.0-76.0); PLATELET 197 x1000/uL (130-400); RED BLOOD CELL COUNT 4.45 mill/uL (4.7-6.1); RED CELL DISTRIBUTION WIDTH 17.5 % (11.6-14.6); WHITE BLOOD COUNT 5.2 x1000/uL (4.5-11.0)
[2023-01-13 12:56] LABS: CLARITY URINE CLEAR (CLEAR); COLOR URINE YELLOW (YELLOW); GLUCOSE URINE NEGATIVE (NEGATIVE); KETONES URINE NEGATIVE (NEGATIVE); LEUKOCYTE ESTERASE URINE NEGATIVE (NEGATIVE); NITRITE URINE NEGATIVE (NEGATIVE); OCCULT BLOOD URINE NEGATIVE (NEGATIVE); PH URINE 6.5 (4.5-8.0); PROTEIN URINE 1+ (NEGATIVE); SPECIFIC GRAVITY URINE 1.013 (1.005-1.030)
[2023-01-13 13:02] LABS: BACTERIA URINE NONE SEEN; RBC URINE NONE SEEN /hpf (0-2); SQUAMOUS EPITHELIAL CELL URINE NONE SEEN /lpf (RARE/1+); YEAST URINE NONE SEEN
[2023-01-13 13:15] LABS: WBC URINE 0-2 /hpf (0-2)
== END 2023-01-13 14:49 | disposition left against medical advice (07) ==
LOC: ER 08:45 → CANBEDREQ 01-14 19:40
DX: M79.662 Pain in left lower leg (principal); M79.661 Pain in right lower leg; I11.9 Hypertensive heart disease without heart failure; Z98.890 Other specified postprocedural states; J44.9 Chronic obstructive pulmonary disease, unspecified; I13.0 Hypertensive heart and chronic kidney disease with heart failure and stage 1 through stage 4 chronic kidney disease, or unspecified chronic kidney disease; I50.9 Heart failure, unspecified; N18.9 Chronic kidney disease, unspecified; I73.9 Peripheral vascular disease, unspecified; I48.91 Unspecified atrial fibrillation; Z88.8 Allergy status to other drugs, medicaments and biological substances; Z88.1 Allergy status to other antibiotic agents; Z95.1 Presence of aortocoronary bypass graft; Z86.718 Personal history of other venous thrombosis and embolism; Z79.899 Other long term (current) drug therapy
CPT/HCPCS: 36415; 71045; 73610; 80053; 81003; 84484; 85025; 93005; 93970; 99285

== ENCOUNTER 2023-04-29 19:51 | Emergency (ER) | payer OTHER ==
[~2023-04-29] VITALS: Ht 177.8 cm; Wt 82.0 kg
[2023-04-29] MEDS ORDERED: LIDOCAINE 5% PATCH TOP SCH (20:00)
[2023-04-29] MEDS ORDERED: ACETAMINOPHEN 325MG TABLET PO ONE (20:00)
[2023-04-29 20:15] VITALS: BP 160/95; PULSE 95; RESP 16; TEMP 97.1; O2SAT 98
[2023-04-29] MEDS ORDERED: KETOROLAC 60MG/2ML VIAL IM NR (21:30)
[2023-04-29] MEDS ORDERED: LIDO700A15 TP (22:00)
== END 2023-04-29 20:21 | disposition home or self-care (01) ==
LOC: ER 19:51
DX: R07.9 Chest pain, unspecified (principal); I11.9 Hypertensive heart disease without heart failure; I48.91 Unspecified atrial fibrillation; I82.409 Acute embolism and thrombosis of unspecified deep veins of unspecified lower extremity; Z98.890 Other specified postprocedural states; Z88.8 Allergy status to other drugs, medicaments and biological substances
CPT/HCPCS: 71101; 71250; 99284

== ENCOUNTER 2023-05-08 11:41 | Inpatient (IN) | payer OTHER ==
[~2023-05-08] VITALS: Ht 170.2 cm; Wt 69.9 kg
[~2023-05-08 11:41] MED LIST changes: +LIDO700A15 TP
[2023-05-08] MEDS ORDERED: ACETAMINOPHEN 325MG TABLET PO ONE (13:00)
[2023-05-08] MEDS ORDERED: ACETAMINOPHEN 650MG SUPP PR SCH (13:00)
[2023-05-08] MEDS ORDERED: HYDRALAZINE 20MG/ML VIAL IV ONE (13:00)
[2023-05-08] MEDS ORDERED: SODIUM CHLORIDE 0.9% 1,000 ML IV ONE (13:00)
[2023-05-08 13:12] LABS: HEMATOCRIT. 44.4 % (42.0-52.0); HEMOGLOBIN. 14.9 g/dL (14.0-18.0); MEAN CORPUSCULAR HGB CONC 33.5 g/dL (31.0-37.0); MEAN CORPUSCULAR VOLUME 83.6 fL (80.0-94.0); MEAN PLATELET VOLUME 7.6 fl (7.4-10.4); PLATELET 193 x1000/uL (130-400); RED BLOOD CELL COUNT 5.31 mill/uL (4.7-6.1); RED CELL DISTRIBUTION WIDTH 16.1 % (11.6-14.6); WHITE BLOOD COUNT 3.9 x1000/uL (4.5-11.0)
[2023-05-08 13:16] LABS: DIFFERENTIAL COMMENT 1
[2023-05-08 13:19] LABS: INR 1.2; PROTHROMBIN TIME 12.6 sec (9.6-11.0)
[2023-05-08 13:25] LABS: ALANINE AMINOTRANSFERASE 16 IU/L (10-49); ALBUMIN 4.2 g/dL (3.2-4.8); ASPARTATE AMINOTRANSFERASE 29 IU/L (<34); BILIRUBIN TOTAL 0.9 mg/dL (0.1-1.0); CALCIUM 9.2 mg/dL (8.7-10.4); CARBON DIOXIDE 25 mEq/L (21-32); CHLORIDE 105 mEq/L (98-107); CREATININE 1.4 mg/dL (0.6-1.3); GLUCOSE 97 mg/dL (70-105); POTASSIUM 3.3 mEq/L (3.5-5.1); PROTEIN TOTAL 8.1 g/dL (6.0-8.3); SODIUM 139 mEq/L (136-145); TROPONIN I HIGH SENSITIVITY 38 ng/L (3.0-53); UREA NITROGEN BLOOD 16 mg/dL (9-23)
[2023-05-08 13:28] LABS: ETHANOL BLOOD < 10 mg/dL (<10)
[2023-05-08 13:36] LABS: ANISOCYTOSIS 1+; PLATELET ESTIMATE NORMAL
[2023-05-08 14:06] LABS: CLARITY URINE CLEAR (CLEAR); COLOR URINE YELLOW (YELLOW); GLUCOSE URINE NEGATIVE (NEGATIVE); KETONES URINE NEGATIVE (NEGATIVE); LEUKOCYTE ESTERASE URINE NEGATIVE (NEGATIVE); NITRITE URINE NEGATIVE (NEGATIVE); OCCULT BLOOD URINE 1+ (NEGATIVE); PH URINE 7.5 (4.5-8.0); PROTEIN URINE 2+ (NEGATIVE); SPECIFIC GRAVITY URINE 1.013 (1.005-1.030)
[2023-05-08 14:26] LABS: SQUAMOUS EPITHELIAL CELL URINE RARE /lpf (RARE/1+)
[2023-05-08 14:27] LABS: BACTERIA URINE TRACE; RBC URINE 0-2 /hpf (0-2); WBC URINE 0-2 /hpf (0-2)
[2023-05-08 14:28] LABS: *AMPHETAMINES SCREEN URINE NEGATIVE (NEGATIVE); *BARBITURATES SCREEN URINE NEGATIVE (NEGATIVE); *BENZODIAZEPINES SCREEN URINE NEGATIVE (NEGATIVE); *COCAINE SCREEN URINE NEGATIVE (NEGATIVE); CANNABINOID URINE SCREEN NEGATIVE (NEGATIVE); ECSTASY MDMA SCREEN URINE NEGATIVE (NEGATIVE); METHADONE URINE SCREEN Neg (NEGATIVE); OPIATES URINE SCREEN NEGATIVE (NEGATIVE); PHENCYCLIDINE URINE SCREEN NEGATIVE (NEGATIVE)
[2023-05-08] MEDS ORDERED: NICARDIPINE 50 MG in SODIUM CHLORIDE 0.9% 230 ML IV PRN ×2 (14:30→23:45)
[2023-05-08] MEDS ORDERED: LABETALOL HCL VIAL 20 MG/4 ML VIAL IV ONE (14:30)
[2023-05-08] MEDS ORDERED: NICARDIPINE 40MG/200ML PREMIX 200 ML IV PRN (15:00)
[2023-05-08] MEDS ORDERED: DILTIAZEM HCL 125 MG in DEXT 5% WATER 100 ML IV PRN ×2 (18:00→18:15)
[2023-05-08] MEDS: FUROSEMIDE 40MG TABLET PO SCH (18:00)
[2023-05-08] MEDS: DILTIAZEM HCL 30MG TABLET PO SCH (18:00)
[2023-05-08] MEDS ORDERED: ACETAMINOPHEN 650MG SUPP PR NR (22:15)
[2023-05-08 23:00] VITALS: BP 187/129; PULSE 108; RESP 25; TEMP 102.9
[2023-05-08 23:01] VITALS: BP 175/126; PULSE 123; RESP 28
[2023-05-08 23:15] VITALS: BP 187/124; PULSE 142; RESP 32
[2023-05-08 23:30] VITALS: BP_SYST 179; BP_SYST 187; BP_DIAS 129; BP_DIAS 133; PULSE 108; PULSE 99; RESP 23; RESP 25; TEMP 102.9
[2023-05-08 23:45] VITALS: BP 189/134; PULSE 95; RESP 23
[2023-05-08] MEDS ORDERED: ACETAMINOPHEN 650MG SUPP PR PRN (23:45)
[2023-05-09] VITALS (94 sets, daily range): BP systolic 124–189; BP diastolic 80–134; PULSE 81–149; RESP 13–30; TEMP 98.2–103.2
[2023-05-09] MEDS ORDERED: HYDRALAZINE 20MG/ML VIAL IV PRN
[2023-05-09] MEDS: KCL 20MEQ/100ML PREMIX 100 ML IV SCH ×2 (00:30→02:20)
[2023-05-09] MEDS: NITROGLYCERIN 50MG PREMIX 250 ML IV PRN ×2 (01:00→16:48)
[2023-05-09] MEDS ORDERED: ACETAMINOPHEN 650MG SUPP PR SCH (02:00)
[2023-05-09] MEDS: DILTIAZEM HCL 30MG TABLET PO SCH ×4 (06:00→17:30)
[2023-05-09 07:57] LABS: HEMATOCRIT. 45.5 % (42.0-52.0); HEMOGLOBIN. 14.9 g/dL (14.0-18.0); MEAN CORPUSCULAR HEMOGLOBIN 27.4 pg (28.0-32.0); MEAN CORPUSCULAR HGB CONC 32.7 g/dL (31.0-37.0); MEAN CORPUSCULAR VOLUME 83.8 fL (80.0-94.0); PLATELET 183 x1000/uL (130-400); RED BLOOD CELL COUNT 5.43 mill/uL (4.7-6.1); RED CELL DISTRIBUTION WIDTH 16.3 % (11.6-14.6); WHITE BLOOD COUNT 11.6 x1000/uL (4.5-11.0)
[2023-05-09 08:17] LABS: DIFFERENTIAL COMMENT 1
[2023-05-09 08:54] LABS: CALCIUM 8.9 mg/dL (8.7-10.4); CARBON DIOXIDE 20 mEq/L (21-32); CHLORIDE 102 mEq/L (98-107); CREATININE 1.3 mg/dL (0.6-1.3); GLUCOSE 140 mg/dL (70-105); POTASSIUM 3.6 mEq/L (3.5-5.1); SODIUM 139 mEq/L (136-145); UREA NITROGEN BLOOD 17 mg/dL (9-23)
[2023-05-09] MEDS ORDERED: DILTIAZEM HCL 60MG TABLET PO NR (09:00)
[2023-05-09] MEDS: FUROSEMIDE 40MG TABLET PO SCH (09:01)
[2023-05-09 13:12] LABS: ANISOCYTOSIS 1+; PLATELET ESTIMATE NORMAL
[2023-05-09] MEDS: APIXABAN 5 MG TABLET PO SCH (17:31)
[2023-05-09] MEDS: ACETAMINOPHEN 325MG TABLET PO PRN (19:43)
[2023-05-09] MEDS: DILTIAZEM HCL 90MG TABLET PO SCH (23:55)
[2023-05-10] VITALS (92 sets, daily range): BP systolic 125–179; BP diastolic 87–137; PULSE 62–135; RESP 11–29; TEMP 98.3–101
[2023-05-10] MEDS: ACETAMINOPHEN 325MG TABLET PO PRN ×2 (06:04→19:38)
[2023-05-10] MEDS: DILTIAZEM HCL 90MG TABLET PO SCH ×3 (06:04→17:19)
[2023-05-10 06:44] LABS: HEMATOCRIT. 43.4 % (42.0-52.0); HEMOGLOBIN. 14.2 g/dL (14.0-18.0); MEAN CORPUSCULAR HEMOGLOBIN 27.6 pg (28.0-32.0); MEAN CORPUSCULAR HGB CONC 32.7 g/dL (31.0-37.0); MEAN CORPUSCULAR VOLUME 84.4 fL (80.0-94.0); MEAN PLATELET VOLUME 8.4 fl (7.4-10.4); PLATELET 181 x1000/uL (130-400); RED BLOOD CELL COUNT 5.15 mill/uL (4.7-6.1); RED CELL DISTRIBUTION WIDTH 16.5 % (11.6-14.6); WHITE BLOOD COUNT 6.4 x1000/uL (4.5-11.0)
[2023-05-10 06:50] LABS: DIFFERENTIAL COMMENT 1
[2023-05-10 07:14] LABS: CARBON DIOXIDE 24 mEq/L (21-32); CHLORIDE 102 mEq/L (98-107); CREATININE 1.3 mg/dL (0.6-1.3); GLUCOSE 121 mg/dL (70-105); POTASSIUM 3.4 mEq/L (3.5-5.1); SODIUM 138 mEq/L (136-145); UREA NITROGEN BLOOD 27 mg/dL (9-23)
[2023-05-10] MEDS ORDERED: POTASSIUM CHLORIDE 20MEQ TABLET SR PO NR (10:00)
[2023-05-10] MEDS: APIXABAN 5 MG TABLET PO SCH ×2 (10:53→17:18)
[2023-05-10] MEDS: FUROSEMIDE 40MG TABLET PO SCH (10:53)
[2023-05-10 11:49] LABS: ANISOCYTOSIS 1+; PLATELET ESTIMATE NORMAL
[2023-05-10] MEDS ORDERED: METOPROLOL TARTRATE 25MG TABLET PO NR (12:30)
[2023-05-10] MEDS ORDERED: CEFTRIAXONE 2GM/50ML (ADDEASE) 50 ML IV SCH (15:45)
[2023-05-10] MEDS: CEFTRIAXONE 2 G in DEXTROSE 5% WATER 50 ML IV SCH (17:19)
[2023-05-10] MEDS: METOPROLOL TARTRATE 25MG TABLET PO SCH (20:52)
[2023-05-11] VITALS (30 sets, daily range): BP systolic 135–170; BP diastolic 91–131; PULSE 60–87; RESP 13–28; TEMP 99.2–100.1
[2023-05-11] MEDS: DILTIAZEM HCL 90MG TABLET PO SCH ×4 (00:45→18:10)
[2023-05-11] MEDS: CLONIDINE 0.1MG TABLET PO PRN ×2 (01:09→16:26)
[2023-05-11] MEDS: NITROGLYCERIN 50MG PREMIX 250 ML IV PRN (02:04)
[2023-05-11] MEDS: APIXABAN 5 MG TABLET PO SCH ×2 (08:46→17:44)
[2023-05-11] MEDS: FUROSEMIDE 40MG TABLET PO SCH (08:46)
[2023-05-11] MEDS: METOPROLOL TARTRATE 25MG TABLET PO SCH ×2 (08:47→21:18)
[2023-05-11] MEDS ORDERED: HYDROCHLOROTHIAZIDE 25MG TABLET PO SCH (12:45)
[2023-05-11] MEDS ORDERED: LOSARTAN 25 MG TABLET PO SCH (13:00)
[2023-05-11] MEDS: CEFTRIAXONE 2 G in DEXTROSE 5% WATER 50 ML IV SCH (17:58)
[2023-05-11] MEDS ORDERED: CARVEDILOL 12.5MG TABLET PO SCH (21:00)
[2023-05-12] VITALS (10 sets, daily range): BP systolic 136–158; BP diastolic 96–120; PULSE 63–85; RESP 14–22; TEMP 98–99.9
[2023-05-12] MEDS: DILTIAZEM HCL 90MG TABLET PO SCH ×4 (06:05→18:20)
[2023-05-12] MEDS: FUROSEMIDE 40MG TABLET PO SCH (09:21)
[2023-05-12] MEDS: LOSARTAN 100 MG TABLET PO SCH (09:21)
[2023-05-12] MEDS: APIXABAN 5 MG TABLET PO SCH ×2 (09:21→17:09)
[2023-05-12] MEDS: METOPROLOL TARTRATE 25MG TABLET PO SCH ×2 (09:22→21:18)
[2023-05-12] MEDS: ACETAMINOPHEN 325MG TABLET PO PRN (17:09)
[2023-05-12] MEDS: CEFTRIAXONE 2 G in DEXTROSE 5% WATER 50 ML IV SCH (17:10)
[2023-05-12] MEDS: DOXYCYCLINE 100 MG in DEXT 5% WATER 100 ML IV SCH (21:18)
[2023-05-13] VITALS (13 sets, daily range): BP systolic 126–162; BP diastolic 93–120; PULSE 55–82; RESP 16–24; TEMP 98.2–98.9; O2SAT 98
[2023-05-13] MEDS: DILTIAZEM HCL 90MG TABLET PO SCH ×4 (01:57→17:29)
[2023-05-13] MEDS: APIXABAN 5 MG TABLET PO SCH ×2 (08:11→17:29)
[2023-05-13] MEDS: FUROSEMIDE 40MG TABLET PO SCH (08:11)
[2023-05-13] MEDS: LOSARTAN 100 MG TABLET PO SCH (08:11)
[2023-05-13] MEDS: METOPROLOL TARTRATE 25MG TABLET PO SCH ×2 (08:15→21:59)
[2023-05-13] MEDS: DOXYCYCLINE 100 MG in DEXT 5% WATER 100 ML IV SCH ×2 (09:19→21:58)
[2023-05-13] MEDS: SPIRONOLACTONE 25MG TABLET PO SCH (12:43)
[2023-05-13] MEDS: CEFTRIAXONE 2 G in DEXTROSE 5% WATER 50 ML IV SCH (17:29)
[2023-05-13] MEDS: CLONIDINE 0.1MG TABLET PO PRN (17:30)
[2023-05-13 17:43] LABS: CALCIUM 8.9 mg/dL (8.7-10.4); CARBON DIOXIDE 25 mEq/L (21-32); CHLORIDE 102 mEq/L (98-107); CREATININE 1.1 mg/dL (0.6-1.3); GLUCOSE 102 mg/dL (70-105); POTASSIUM 3.3 mEq/L (3.5-5.1); SODIUM 139 mEq/L (136-145); UREA NITROGEN BLOOD 23 mg/dL (9-23)
[2023-05-13] MEDS ORDERED: POTASSIUM CHLORIDE 20MEQ TABLET SR PO NR (19:30)
[2023-05-13] MEDS ORDERED: CARVEDILOL 6.25 MG TABLET PO SCH (21:00)
[2023-05-13] MEDS: HYDRALAZINE HCL 50MG TABLET PO SCH (21:58)
[2023-05-14] VITALS: BP 137/96; PULSE 68; RESP 24; TEMP 99.1
[2023-05-14] MEDS: DILTIAZEM HCL 90MG TABLET PO SCH ×4 (01:10→18:04)
[2023-05-14 04:00] VITALS: BP 136/100; PULSE 58; RESP 22; TEMP 98.5
[2023-05-14] MEDS: SPIRONOLACTONE 25MG TABLET PO SCH (08:39)
[2023-05-14] MEDS: APIXABAN 5 MG TABLET PO SCH ×2 (08:39→18:04)
[2023-05-14] MEDS: HYDRALAZINE HCL 50MG TABLET PO SCH ×2 (08:39→21:00)
[2023-05-14] MEDS: FUROSEMIDE 40MG TABLET PO SCH (08:40)
[2023-05-14] MEDS: METOPROLOL TARTRATE 25MG TABLET PO SCH ×2 (08:40→21:00)
[2023-05-14] MEDS: LOSARTAN 100 MG TABLET PO SCH (08:40)
[2023-05-14] MEDS: DOXYCYCLINE 100 MG in DEXT 5% WATER 100 ML IV SCH ×2 (08:42→21:00)
[2023-05-14] MEDS ORDERED: SPIRONOLACTONE 25MG TABLET PO NR (10:45)
[2023-05-14 12:00] VITALS: BP 151/103; PULSE 65; RESP 22; TEMP 98.5
[2023-05-14 16:00] VITALS: BP 145/110; PULSE 75; RESP 17; TEMP 97.4
[2023-05-14] MEDS: CEFTRIAXONE 2 G in DEXTROSE 5% WATER 50 ML IV SCH (18:05)
[2023-05-14 20:00] VITALS: BP 150/101; PULSE 64; RESP 23; TEMP 98.6
[2023-05-15] VITALS: BP 155/106; PULSE 64; RESP 17; TEMP 98.9
[2023-05-15 04:00] VITALS: BP 156/106; PULSE 77; RESP 18; TEMP 98.5
[2023-05-15 08:00] VITALS: BP 148/106; PULSE 70; RESP 18; TEMP 98.2
[2023-05-15] MEDS: SPIRONOLACTONE 50MG TABLET PO SCH (09:59)
[2023-05-15] MEDS: APIXABAN 5 MG TABLET PO SCH ×2 (09:59→16:56)
[2023-05-15] MEDS: LOSARTAN 100 MG TABLET PO SCH (09:59)
[2023-05-15] MEDS: METOPROLOL TARTRATE 25MG TABLET PO SCH ×2 (10:00→22:10)
[2023-05-15] MEDS: HYDRALAZINE HCL 50MG TABLET PO SCH (10:00)
[2023-05-15] MEDS: FUROSEMIDE 40MG TABLET PO SCH (10:01)
[2023-05-15] MEDS: DILTIAZEM HCL 90MG TABLET PO SCH ×4 (10:09→18:00)
[2023-05-15] MEDS ORDERED: HYDRALAZINE HCL 50MG TABLET PO SCH (10:15)
[2023-05-15] MEDS: DOXYCYCLINE 100 MG in DEXT 5% WATER 100 ML IV SCH ×2 (11:27→22:13)
[2023-05-15 12:00] VITALS: BP 164/125; PULSE 65; RESP 16; TEMP 98.2
[2023-05-15 16:00] VITALS: BP 141/85; PULSE 65; RESP 18; TEMP 98.2
[2023-05-15] MEDS: CEFTRIAXONE 2 G in DEXTROSE 5% WATER 50 ML IV SCH (16:55)
[2023-05-15] MEDS: HYDRALAZINE HCL 100MG TABLET PO SCH (22:09)
[2023-05-16] VITALS: BP 136/72; PULSE 61; RESP 13; TEMP 98.8
[2023-05-16] MEDS: DILTIAZEM HCL 90MG TABLET PO SCH ×5 (00:23→23:59)
[2023-05-16 04:00] VITALS: BP 148/75; PULSE 89; RESP 20; TEMP 98.5
[2023-05-16 08:00] VITALS: BP 139/95; PULSE 78; RESP 14; TEMP 98.5
[2023-05-16] MEDS: LOSARTAN 100 MG TABLET PO SCH (09:23)
[2023-05-16] MEDS: HYDRALAZINE HCL 100MG TABLET PO SCH ×2 (09:23→21:17)
[2023-05-16] MEDS: SPIRONOLACTONE 50MG TABLET PO SCH (09:23)
[2023-05-16] MEDS: DOXYCYCLINE 100 MG in DEXT 5% WATER 100 ML IV SCH ×2 (09:23→21:16)
[2023-05-16] MEDS: METOPROLOL TARTRATE 25MG TABLET PO SCH ×2 (09:24→21:17)
[2023-05-16] MEDS: APIXABAN 5 MG TABLET PO SCH ×2 (09:24→17:32)
[2023-05-16] MEDS: FUROSEMIDE 40MG TABLET PO SCH (09:24)
[2023-05-16 12:00] VITALS: BP 118/85; PULSE 56; RESP 18; TEMP 98.5
[2023-05-16] MEDS ORDERED: APIXABAN 5 MG TABLET PO SCH (12:30)
[2023-05-16 16:00] VITALS: BP 156/104; PULSE 71; RESP 19; TEMP 98.5
[2023-05-16] MEDS: CEFTRIAXONE 2 G in DEXTROSE 5% WATER 50 ML IV SCH (17:32)
[2023-05-16 20:00] VITALS: BP 133/86; PULSE 66; RESP 16; TEMP 98.1
[2023-05-17] VITALS: BP 132/94; PULSE 62; RESP 18; TEMP 98.7
[2023-05-17 04:00] VITALS: BP 149/91; PULSE 65; RESP 22; TEMP 98.1
[2023-05-17] MEDS: DILTIAZEM HCL 90MG TABLET PO SCH ×3 (06:04→18:00)
[2023-05-17 08:00] VITALS: BP 138/99; PULSE 67; RESP 20; TEMP 99.1
[2023-05-17] MEDS: LOSARTAN 100 MG TABLET PO SCH (08:20)
[2023-05-17] MEDS: APIXABAN 5 MG TABLET PO SCH ×2 (08:20→17:00)
[2023-05-17] MEDS: FUROSEMIDE 40MG TABLET PO SCH (08:20)
[2023-05-17] MEDS: HYDRALAZINE HCL 100MG TABLET PO SCH ×2 (08:20→21:18)
[2023-05-17] MEDS: DOXYCYCLINE 100 MG in DEXT 5% WATER 100 ML IV SCH (08:20)
[2023-05-17] MEDS: SPIRONOLACTONE 50MG TABLET PO SCH (08:20)
[2023-05-17] MEDS: METOPROLOL TARTRATE 25MG TABLET PO SCH ×2 (08:20→21:22)
[2023-05-17 12:00] VITALS: BP 140/97; PULSE 66; RESP 20; TEMP 98.4
[2023-05-17 16:00] VITALS: BP 131/96; PULSE 61; RESP 18; TEMP 98.1
[2023-05-17] MEDS: CEFTRIAXONE 2 G in DEXTROSE 5% WATER 50 ML IV SCH (17:00)
[2023-05-17 21:00] VITALS: BP 131/100; PULSE 78; RESP 24; TEMP 98.7
[2023-05-18] VITALS: BP 109/73; PULSE 72; RESP 18; TEMP 99.4
[2023-05-18] MEDS: DILTIAZEM HCL 90MG TABLET PO SCH ×3 (00:06→11:23)
[2023-05-18 04:00] VITALS: BP 121/80; PULSE 70; RESP 18; TEMP 99
[2023-05-18 08:00] VITALS: BP 128/87; PULSE 73; RESP 21; TEMP 97.6
[2023-05-18] MEDS: METOPROLOL TARTRATE 25MG TABLET PO SCH (09:00)
[2023-05-18] MEDS: FUROSEMIDE 40MG TABLET PO SCH (09:00)
[2023-05-18] MEDS: HYDRALAZINE HCL 100MG TABLET PO SCH (09:00)
[2023-05-18] MEDS: APIXABAN 5 MG TABLET PO SCH (09:00)
[2023-05-18] MEDS: SPIRONOLACTONE 50MG TABLET PO SCH (09:00)
[2023-05-18] MEDS: LOSARTAN 100 MG TABLET PO SCH (09:00)
[2023-05-18 12:00] VITALS: BP 129/77; PULSE 71; RESP 22; TEMP 98.7
[2023-05-18 15:36] VITALS: BP 117/82; PULSE 71; TEMP 98.1; O2SAT 99
== END 2023-05-18 17:27 | DRG 720 ==
LOC: ER 12:19 → MICUSO 15:11 → EDBEDREQTM 15:13 → EDBEDREQSVC 15:13 → EDBEDREQ 15:13 → CVICU 22:45 → 3WST 05-11 14:53
PROVIDERS: ADMIT Internal Medicine; ATTEND Internal Medicine
DX: A41.9 Sepsis, unspecified organism (principal); J96.01 Acute respiratory failure with hypoxia; G93.40 Encephalopathy, unspecified; I50.23 Acute on chronic systolic (congestive) heart failure; N17.9 Acute kidney failure, unspecified; I11.0 Hypertensive heart disease with heart failure; Z20.822 Contact with and (suspected) exposure to COVID-19; I71.23 Aneurysm of the descending thoracic aorta, without rupture; I48.20 Chronic atrial fibrillation, unspecified; I16.1 Hypertensive emergency; E87.6 Hypokalemia; J44.9 Chronic obstructive pulmonary disease, unspecified; Z59.00 Homelessness unspecified; Z79.01 Long term (current) use of anticoagulants; Z86.73 Personal history of transient ischemic attack (TIA), and cerebral infarction without residual deficits; Z86.718 Personal history of other venous thrombosis and embolism; Z91.199 Patient's noncompliance with other medical treatment and regimen due to unspecified reason
CPT/HCPCS: 36415; 70551; 71045; 71250; 72170; 80048; 80053; 80305; 80320; 81003; 83605; 83880; 84145; 84484; 85025; 87420; 87426; 87804; 93005; 97161; 97166; 97530; 97535; 99291; J0360; J0696; J3480; J3490; J7030; J7060; G0480

== ENCOUNTER 2023-09-11 00:48 | Emergency (ER) | payer MEDICAID ==
[~2023-09-11] VITALS: Ht 180.3 cm; Wt 82.0 kg
[~2023-09-11 00:48] MED LIST changes: -ACET-2708 MT; -APIX5TAB MT; +APIX5TAB PO; -DILT360T13 MT; +DILT360T13 PO; -POTA-205 MT; +POTA-205 PO; +TOPUD PO; -blood thinner
[2023-09-11 00:55] VITALS: TEMP 98.1; O2SAT 100
[2023-09-11 02:00] LABS: CHLORIDE 108 mEq/L (98-107); POTASSIUM 3.8 mEq/L (3.5-5.1); SODIUM 142 mEq/L (136-145)
[2023-09-11 02:01] LABS: CALCIUM 10.5 mg/dL (8.7-10.4); CARBON DIOXIDE 23 mEq/L (21-32)
[2023-09-11 02:06] LABS: CREATININE 1.3 mg/dL (0.6-1.3); GLUCOSE 104 mg/dL (70-105); UREA NITROGEN BLOOD 16 mg/dL (9-23)
[2023-09-11 03:57] VITALS: BP 184/124; PULSE 82; RESP 14
== END 2023-09-11 04:26 | disposition home or self-care (01) ==
LOC: ER 00:48
DX: R33.9 Retention of urine, unspecified (principal); I10 Essential (primary) hypertension; Z79.899 Other long term (current) drug therapy
CPT/HCPCS: 36415; 51702; 80048; 99284

== ENCOUNTER 2023-09-14 10:08 | Emergency (ER) | payer MEDICAID ==
[~2023-09-14] VITALS: Ht 175.3 cm; Wt 81.6 kg
[2023-09-14 10:27] VITALS: O2SAT 98
[2023-09-14 12:35] VITALS: BP 132/84; PULSE 81; RESP 16; TEMP 98.3
== END 2023-09-14 12:35 | disposition home or self-care (01) ==
LOC: ER 10:08
DX: T83.098A Other mechanical complication of other urinary catheter, initial encounter (principal); I11.9 Hypertensive heart disease without heart failure; F19.90 Other psychoactive substance use, unspecified, uncomplicated; I82.409 Acute embolism and thrombosis of unspecified deep veins of unspecified lower extremity; Z88.8 Allergy status to other drugs, medicaments and biological substances
CPT/HCPCS: 99281

== ENCOUNTER 2023-12-20 11:01 | Emergency (ER) | payer MEDICAID ==
[~2023-12-20] VITALS: Ht 175.3 cm; Wt 78.0 kg
[2023-12-20 11:03] VITALS: BP 172/125; RESP 20; TEMP 98.3; O2SAT 100
[2023-12-20 11:04] VITALS: PULSE 102
[2023-12-20 12:19] LABS: CLARITY URINE CLEAR (CLEAR); COLOR URINE DARK YELLOW (YELLOW); GLUCOSE URINE NEGATIVE (NEGATIVE); KETONES URINE NEGATIVE (NEGATIVE); LEUKOCYTE ESTERASE URINE TRACE (NEGATIVE); NITRITE URINE NEGATIVE (NEGATIVE); OCCULT BLOOD URINE 2+ (NEGATIVE); PH URINE 5.5 (4.5-8.0); PROTEIN URINE 1+ (NEGATIVE); SPECIFIC GRAVITY URINE 1.022 (1.005-1.030)
[2023-12-20 12:49] LABS: SQUAMOUS EPITHELIAL CELL URINE 1+ /lpf (RARE/1+)
[2023-12-20 12:50] LABS: BACTERIA URINE TRACE; RBC URINE 50-100 /hpf (0-2)
[2023-12-20 12:52] LABS: WBC URINE 0-2 /hpf (0-2)
[2023-12-20 14:42] LABS: BASOPHILS % 1.2 % (0.0-2.0); EOSINOPHILS % 2.7 % (0.0-5.0); HEMATOCRIT. 40.7 % (42.0-52.0); HEMOGLOBIN. 12.9 g/dL (14.0-18.0); LYMPHOCYTES % 21.5 % (20.0-50.0); MEAN CORPUSCULAR HEMOGLOBIN 26.9 pg (28.0-32.0); MEAN CORPUSCULAR HGB CONC 31.8 g/dL (31.0-37.0); MEAN CORPUSCULAR VOLUME 84.5 fL (80.0-94.0); MEAN PLATELET VOLUME 6.9 fl (7.4-10.4); MONOCYTES % 12.4 % (2.0-8.0); NEUTROPHILS % 62.2 % (40.0-76.0); PLATELET 293 x1000/uL (130-400); RED BLOOD CELL COUNT 4.81 mill/uL (4.7-6.1); RED CELL DISTRIBUTION WIDTH 18.8 % (11.6-14.6); WHITE BLOOD COUNT 5.1 x1000/uL (4.5-11.0)
[2023-12-20 14:48] LABS: CHLORIDE 110 mEq/L (98-107); POTASSIUM 4.1 mEq/L (3.5-5.1); SODIUM 142 mEq/L (136-145)
[2023-12-20 14:49] LABS: CARBON DIOXIDE 28 mEq/L (21-32)
[2023-12-20 14:50] LABS: CALCIUM 9.5 mg/dL (8.7-10.4)
[2023-12-20 14:54] LABS: CREATININE 1.3 mg/dL (0.6-1.3); GLUCOSE 90 mg/dL (70-105); PARTIAL THROMBOPLASTIN TIME 32.2 sec (23.4-31.0); PROTHROMBIN TIME 11.5 sec (9.6-11.0)
[2023-12-20 14:55] LABS: UREA NITROGEN BLOOD 15 mg/dL (9-23)
[2023-12-20 14:56] LABS: ALANINE AMINOTRANSFERASE < 7 IU/L (10-49); ALBUMIN 4.6 g/dL (3.2-4.8); ASPARTATE AMINOTRANSFERASE 13 IU/L (<34)
[2023-12-20 14:57] LABS: BILIRUBIN TOTAL 0.6 mg/dL (0.1-1.0); PROTEIN TOTAL 7.6 g/dL (6.0-8.3)
== END 2023-12-20 16:01 | disposition left against medical advice (07) ==
LOC: ER 11:01
DX: R31.9 Hematuria, unspecified (principal); I10 Essential (primary) hypertension; F19.90 Other psychoactive substance use, unspecified, uncomplicated; Z98.890 Other specified postprocedural states; Z79.899 Other long term (current) drug therapy; Z88.8 Allergy status to other drugs, medicaments and biological substances
CPT/HCPCS: 36415; 76770; 80053; 81003; 85025; 99284

== ENCOUNTER 2023-12-23 11:07 | Emergency (ER) | payer MEDICAID ==
[~2023-12-23] VITALS: Ht 180.3 cm; Wt 91.0 kg
[2023-12-23 11:17] VITALS: O2SAT 100
[2023-12-23 11:37] LABS: BASOPHILS % 1.3 % (0.0-2.0); EOSINOPHILS % 1.6 % (0.0-5.0); HEMATOCRIT. 40.9 % (42.0-52.0); HEMOGLOBIN. 13.2 g/dL (14.0-18.0); LYMPHOCYTES % 16.3 % (20.0-50.0); MEAN CORPUSCULAR HGB CONC 32.2 g/dL (31.0-37.0); MEAN CORPUSCULAR VOLUME 83.8 fL (80.0-94.0); MEAN PLATELET VOLUME 6.9 fl (7.4-10.4); MONOCYTES % 12.1 % (2.0-8.0); NEUTROPHILS % 68.7 % (40.0-76.0); PLATELET 285 x1000/uL (130-400); RED BLOOD CELL COUNT 4.88 mill/uL (4.7-6.1); RED CELL DISTRIBUTION WIDTH 18.8 % (11.6-14.6); WHITE BLOOD COUNT 5.3 x1000/uL (4.5-11.0)
[2023-12-23 11:45] LABS: CARBON DIOXIDE 25 mEq/L (21-32); CHLORIDE 111 mEq/L (98-107); POTASSIUM 3.6 mEq/L (3.5-5.1); SODIUM 142 mEq/L (136-145)
[2023-12-23 11:46] LABS: CALCIUM 9.5 mg/dL (8.7-10.4)
[2023-12-23 11:51] LABS: CREATININE 1.4 mg/dL (0.6-1.3); GLUCOSE 111 mg/dL (70-105); UREA NITROGEN BLOOD 16 mg/dL (9-23)
[2023-12-23] MEDS ORDERED: CLONIDINE 0.1MG TABLET PO ONE (14:45)
[2023-12-23 15:19] LABS: CLARITY URINE CLEAR (CLEAR); COLOR URINE YELLOW (YELLOW); GLUCOSE URINE NEGATIVE (NEGATIVE); KETONES URINE NEGATIVE (NEGATIVE); LEUKOCYTE ESTERASE URINE NEGATIVE (NEGATIVE); NITRITE URINE NEGATIVE (NEGATIVE); OCCULT BLOOD URINE NEGATIVE (NEGATIVE); PH URINE 6.5 (4.5-8.0); PROTEIN URINE 3+ (NEGATIVE); SPECIFIC GRAVITY URINE 1.019 (1.005-1.030)
[2023-12-23 15:42] LABS: BACTERIA URINE NONE SEEN; RBC URINE 0-2 /hpf (0-2); SQUAMOUS EPITHELIAL CELL URINE RARE /lpf (RARE/1+); WBC URINE 0-2 /hpf (0-2)
[2023-12-23] MEDS: CLONIDINE 0.1MG TABLET PO NR (18:10)
[2023-12-23 18:15] VITALS: BP 166/88; PULSE 88; RESP 18; TEMP 36.94740; O2SAT 100
== END 2023-12-23 18:15 | disposition home or self-care (01) ==
LOC: ER 11:13
DX: R33.9 Retention of urine, unspecified (principal); I51.9 Heart disease, unspecified; I10 Essential (primary) hypertension; Z88.8 Allergy status to other drugs, medicaments and biological substances; Z88.6 Allergy status to analgesic agent; Z79.899 Other long term (current) drug therapy; Z98.890 Other specified postprocedural states
CPT/HCPCS: 36415; 51702; 80048; 81003; 85025; 99284

== ENCOUNTER 2023-12-29 13:27 | Emergency (ER) | payer MEDICAID ==
[~2023-12-29] VITALS: Ht 170.2 cm; Wt 82.0 kg
[~2023-12-29 13:27] MED LIST changes: +HYDR100T11 PO; -HYDR100T26 PO
[2023-12-29 13:29] VITALS: O2SAT 97
[2023-12-29] MEDS: HYDROCODONE/ACETAMINOPHEN 5/325MG TABLET PO ONE (15:00)
[2023-12-29 17:02] VITALS: BP 128/85; PULSE 81; RESP 18; TEMP 36.94740; O2SAT 99
== END 2023-12-29 17:33 | disposition home or self-care (01) ==
LOC: ER 13:34
DX: T83.9XXA Unspecified complication of genitourinary prosthetic device, implant and graft, initial encounter (principal); Y92.89 Other specified places as the place of occurrence of the external cause
CPT/HCPCS: 51702; 99284

== ENCOUNTER 2024-08-25 03:00 | Inpatient (IN) | payer MEDICAID ==
[~2024-08-25] VITALS: Ht 175.3 cm; Wt 91.6 kg
[2024-08-25] VITALS (7 sets, daily range): BP systolic 124–147; BP diastolic 53–92; PULSE 73–90; RESP 18–23; TEMP 36.2–36.9; O2SAT 97–100
[2024-08-25] MEDS: IPRATROPIUM/ALBUTEROL 0.5-3(2.5)MG/3ML NEB NEB SCH (00:24)
[~2024-08-25 03:00] MED LIST changes: -IBUP-2029 PO; +LISI2.5T47 MT; -NAP5EC PO; -POTA-205 PO; -TOPUD PO
[2024-08-25 05:09] LABS: BASOPHILS % 0.5 % (0.0-2.0); DIFFERENTIAL COMMENT 0; EOSINOPHILS % 0.6 % (0.0-5.0); HEMOGLOBIN. 12.3 g/dL (14.0-18.0); LYMPHOCYTES % 12.3 % (20.0-50.0); MEAN CORPUSCULAR HEMOGLOBIN 25.2 pg (28.0-32.0); MEAN CORPUSCULAR HGB CONC 31.6 g/dL (31.0-37.0); MEAN CORPUSCULAR VOLUME 79.8 fL (80.0-94.0); MEAN PLATELET VOLUME 8.2 fl (7.4-10.4); MONOCYTES % 4.9 % (2.0-8.0); NEUTROPHILS % 81.7 % (40.0-76.0); PLATELET 334 x1000/uL (130-400); RED BLOOD CELL COUNT 4.89 mill/uL (4.7-6.1); RED CELL DISTRIBUTION WIDTH 17.1 % (11.6-14.6); WHITE BLOOD COUNT 13.8 x1000/uL (4.5-11.0)
[2024-08-25 05:21] LABS: PARTIAL THROMBOPLASTIN TIME 26.3 sec (23.4-31.0); PROTHROMBIN TIME 10.8 sec (9.6-11.0)
[2024-08-25 06:27] LABS: CHLORIDE 109 mEq/L (98-107); POTASSIUM 3.9 mEq/L (3.5-5.1); SODIUM 143 mEq/L (136-145)
[2024-08-25 06:28] LABS: CARBON DIOXIDE 24 mEq/L (21-32); GLUCOSE 120 mg/dL (70-105); PROTEIN TOTAL 7.6 g/dL (6.0-8.3); UREA NITROGEN BLOOD 22 mg/dL (9-23)
[2024-08-25 06:29] LABS: ALBUMIN 4.3 g/dL (3.2-4.8)
[2024-08-25 06:30] LABS: ALANINE AMINOTRANSFERASE 7 IU/L (10-49); ASPARTATE AMINOTRANSFERASE 15 IU/L (<34); BILIRUBIN DIRECT 0.1 mg/dL (<=3.0); BILIRUBIN TOTAL 0.4 mg/dL (0.1-1.0)
[2024-08-25 06:31] LABS: TROPONIN I HIGH SENSITIVITY 10 ng/L (3.0-53)
[2024-08-25 06:33] LABS: CREATININE 1.3 mg/dL (0.6-1.3)
[2024-08-25] MEDS ORDERED: ONDANSETRON HCL 4MG/2ML INJ IV PRN (07:30)
[2024-08-25] MEDS ORDERED: HYDROCODONE/ACETAMINOPHEN 5/325MG TABLET PO PRN (07:30)
[2024-08-25] MEDS ORDERED: ACETAMINOPHEN 325MG TABLET PO PRN (07:30)
[2024-08-25] MEDS ORDERED: ZOLPIDEM TARTRATE 5MG TABLET PO PRN (07:30)
[2024-08-25] MEDS ORDERED: CLONIDINE 0.1MG TABLET PO PRN (07:30)
[2024-08-25] MEDS ORDERED: NALOXONE HCL 0.4MG/ML VIAL IV PRN (07:45)
[2024-08-25] MEDS ORDERED: CEFTRIAXONE 1GM/50ML 50 ML IV SCH (08:00)
[2024-08-25] MEDS ORDERED: AMLO10TA80 PO (08:06)
[2024-08-25] MEDS ORDERED: ATOR20TA65 PO (08:06)
[2024-08-25] MEDS ORDERED: ASPI-1160 PO (08:06)
[2024-08-25] MEDS ORDERED: LISI40TA13 PO (08:06)
[2024-08-25] MEDS ORDERED: FLUT1DIS3 IH (08:06)
[2024-08-25] MEDS ORDERED: LISINOPRIL 2.5MG TABLET PO SCH (09:00)
[2024-08-25] MEDS ORDERED: AZITHROMYCIN 500MG/250ML 250 ML IV SCH (09:00)
[2024-08-25] MEDS: AZITHROMYCIN 500MG/250ML 250 ML IV SCH (09:59)
[2024-08-25] MEDS: CEFTRIAXONE 1GM/50ML 50 ML IV SCH (10:02)
[2024-08-25] MEDS: HYDRALAZINE HCL 100MG TABLET PO SCH (10:03)
[2024-08-25] MEDS: METHYLPREDNISOLONE SOD SUCC 125MG/2ML (ACT-O-VIAL) IV SCH (10:03)
[2024-08-25] MEDS: LISINOPRIL 2.5MG TABLET PO SCH (10:03)
[2024-08-25] MEDS: PANTOPRAZOLE SODIUM 40 MG/VIAL IV SCH (10:04)
[2024-08-25] MEDS: ENOXAPARIN 100MG/ML SYR SUBCUT SCH (10:07)
[2024-08-25] MEDS: DILTIAZEM HCL 60MG TABLET PO SCH (13:41)
[2024-08-25] MEDS: CLONIDINE 0.2MG TABLET PO SCH (13:43)
[2024-08-25] MEDS ORDERED: REGADENOSON 0.4 MG/5 ML IV NR (14:30)
[2024-08-25] MEDS: ASPIRIN 81MG TABLET PO SCH (15:06)
[2024-08-25] MEDS: FUROSEMIDE 40MG/4ML VIAL IVP NR (18:42)
[2024-08-25] MEDS: PREDNISONE 20MG TABLET PO SCH (18:42)
[2024-08-25 19:12] LABS: TROPONIN I HIGH SENSITIVITY 14 ng/L (3.0-53)
[2024-08-25 19:28] LABS: *AMPHETAMINES SCREEN URINE NEGATIVE (NEGATIVE); *BARBITURATES SCREEN URINE NEGATIVE (NEGATIVE); *BENZODIAZEPINES SCREEN URINE NEGATIVE (NEGATIVE); *COCAINE SCREEN URINE NEGATIVE (NEGATIVE); CANNABINOID URINE SCREEN NEGATIVE (NEGATIVE); ECSTASY MDMA SCREEN URINE NEGATIVE (NEGATIVE); METHADONE URINE SCREEN NEGATIVE (NEGATIVE); OPIATES URINE SCREEN NEGATIVE (NEGATIVE); PHENCYCLIDINE URINE SCREEN NEGATIVE (NEGATIVE)
[2024-08-25] MEDS: ATORVASTATIN CALCIUM 40MG TABLET PO SCH (21:45)
[2024-08-26] VITALS (8 sets, daily range): BP systolic 121–134; BP diastolic 71–86; PULSE 56–88; RESP 18–20; TEMP 36.1–37.2; O2SAT 92–100
[2024-08-26 00:45] LABS: TROPONIN I HIGH SENSITIVITY 12 ng/L (3.0-53)
[2024-08-26 07:26] LABS: CALCIUM 9.6 mg/dL (8.7-10.4); POTASSIUM 3.6 mEq/L (3.5-5.1)
[2024-08-26 07:30] LABS: HEMATOCRIT. 35.5 % (42.0-52.0); HEMOGLOBIN. 11.4 g/dL (14.0-18.0); MEAN CORPUSCULAR HEMOGLOBIN 25.6 pg (28.0-32.0); MEAN PLATELET VOLUME 8.3 fl (7.4-10.4); PLATELET 226 x1000/uL (130-400); RED BLOOD CELL COUNT 4.43 mill/uL (4.7-6.1); RED CELL DISTRIBUTION WIDTH 16.3 % (11.6-14.6)
[2024-08-26 07:32] LABS: CREATININE 1.5 mg/dL (0.6-1.3)
[2024-08-26 07:50] LABS: DIFFERENTIAL COMMENT 1
[2024-08-26] MEDS: METOPROLOL TARTRATE 5MG/5ML VIAL IV PRN (08:45)
[2024-08-26 09:52] LABS: BG BASE EXCESS -2.9 mmol/L (-2.0-3.0); BG CARBOXYHEMOGLOBIN 0.9 % (0.5-1.5); BG DEOXYHEMOGLOBIN 3.6 % (0.0-5.0); BG FRACTION INSPIRED OXYGEN 21; BG HCO3 ACT 19.4 mmol/L (21.0-28.0); BG METHEMOGLOBIN 0.3 % (0.5-1.5); BG OXYGEN SATURATION 96.4 % (94.0-98.0); BG OXYHEMOGLOBIN 95.2 % (94.0-98.0); BG PCO2 26.9 mmHg (35.0-48.0); BG PH 7.476 (7.350-7.450); BG SAMPLE SITE RIGHT BRACHIAL; BG TOTAL HEMOGLOBIN 12.2 g/dL (13.5-17.5); BG VENT MODE ROOM AIR
[2024-08-26] MEDS: METOPROLOL TARTRATE 25MG TABLET PO NR (13:00)
[2024-08-26 14:45] LABS: ANISOCYTOSIS 1+; PLATELET ESTIMATE NORMAL
[2024-08-26 16:16] LABS: CLARITY URINE TURBID (CLEAR); COLOR URINE YELLOW (YELLOW); GLUCOSE URINE 2+ (NEGATIVE); KETONES URINE TRACE (NEGATIVE); LEUKOCYTE ESTERASE URINE NEGATIVE (NEGATIVE); NITRITE URINE NEGATIVE (NEGATIVE); OCCULT BLOOD URINE 1+ (NEGATIVE); PROTEIN URINE 1+ (NEGATIVE); SPECIFIC GRAVITY URINE 1.023 (1.005-1.030)
[2024-08-26 17:17] LABS: AMORPHOUS SEDIMENT URINE 2+ /lpf; BACTERIA URINE 4+; SQUAMOUS EPITHELIAL CELL URINE FEW /lpf (RARE/1+); WBC URINE 0-2 /hpf (0-2)
[2024-08-26] MEDS: PREDNISONE 10MG TABLET PO SCH (17:47)
[2024-08-27] VITALS (12 sets, daily range): BP systolic 115–134; BP diastolic 66–93; PULSE 59–88; RESP 15–20; TEMP 36.4–36.8; O2SAT 94–100
[2024-08-27 16:10] LABS: HEMATOCRIT. 34.8 % (42.0-52.0); HEMOGLOBIN. 11.2 g/dL (14.0-18.0); MEAN CORPUSCULAR HEMOGLOBIN 25.5 pg (28.0-32.0); MEAN CORPUSCULAR HGB CONC 32.3 g/dL (31.0-37.0); MEAN PLATELET VOLUME 7.6 fl (7.4-10.4); PLATELET 245 x1000/uL (130-400); RED CELL DISTRIBUTION WIDTH 16.9 % (11.6-14.6); WHITE BLOOD COUNT 16.1 x1000/uL (4.5-11.0)
[2024-08-27 16:11] LABS: DIFFERENTIAL COMMENT 1
[2024-08-27 16:26] LABS: CHLORIDE 106 mEq/L (98-107); POTASSIUM 4.1 mEq/L (3.5-5.1); SODIUM 138 mEq/L (136-145)
[2024-08-27 16:27] LABS: CALCIUM 8.9 mg/dL (8.7-10.4); CARBON DIOXIDE 23 mEq/L (21-32)
[2024-08-27 16:32] LABS: CREATININE 1.4 mg/dL (0.6-1.3); GLUCOSE 194 mg/dL (70-105); UREA NITROGEN BLOOD 30 mg/dL (9-23)
[2024-08-27 16:49] LABS: ANISOCYTOSIS 1+; MICROCYTOSIS 1+; PLATELET ESTIMATE NORMAL
[2024-08-28] VITALS (9 sets, daily range): BP systolic 104–134; BP diastolic 68–90; PULSE 61–97; RESP 16–20; TEMP 36.2–36.6; O2SAT 98–100
[2024-08-28 06:05] LABS: HEMATOCRIT. 33.9 % (42.0-52.0); HEMOGLOBIN. 11.1 g/dL (14.0-18.0); MEAN CORPUSCULAR HEMOGLOBIN 25.8 pg (28.0-32.0); MEAN CORPUSCULAR HGB CONC 32.8 g/dL (31.0-37.0); MEAN CORPUSCULAR VOLUME 78.4 fL (80.0-94.0); MEAN PLATELET VOLUME 8.5 fl (7.4-10.4); PLATELET 233 x1000/uL (130-400); RED BLOOD CELL COUNT 4.32 mill/uL (4.7-6.1); RED CELL DISTRIBUTION WIDTH 16.7 % (11.6-14.6); WHITE BLOOD COUNT 10.1 x1000/uL (4.5-11.0)
[2024-08-28 06:29] LABS: CARBON DIOXIDE 23 mEq/L (21-32); CHLORIDE 105 mEq/L (98-107); POTASSIUM 3.6 mEq/L (3.5-5.1); SODIUM 139 mEq/L (136-145)
[2024-08-28 06:30] LABS: CALCIUM 8.7 mg/dL (8.7-10.4)
[2024-08-28 06:34] LABS: CREATININE 1.2 mg/dL (0.6-1.3)
[2024-08-28 06:35] LABS: GLUCOSE 119 mg/dL (70-105); UREA NITROGEN BLOOD 26 mg/dL (9-23)
[2024-08-28 06:44] LABS: DIFFERENTIAL COMMENT 1
[2024-08-28] MEDS: PREDNISONE 10MG TABLET PO SCH (09:01)
[2024-08-28 18:41] LABS: ANISOCYTOSIS 1+; HYPOCHROMASIA 1+; MICROCYTOSIS 1+; PLATELET ESTIMATE NORMAL
== END 2024-08-28 19:50 | disposition home or self-care (01) | DRG 194 ==
LOC: ER 03:00 → EDBEDREQSVC 06:14 → 7WST 06:14 → EDBEDREQTM 06:14
PROVIDERS: ADMIT Internal Medicine; ATTEND Internal Medicine
PROC: 5A09357 Assistance with Respiratory Ventilation, Less than 24 Consecutive Hours, Continuous Positive Airway Pressure (ICD-10-PCS; principal; 2024-08-25)
DX: I11.0 Hypertensive heart disease with heart failure (principal); J96.01 Acute respiratory failure with hypoxia; E87.70 Fluid overload, unspecified; I50.9 Heart failure, unspecified; D72.829 Elevated white blood cell count, unspecified; I48.0 Paroxysmal atrial fibrillation; F17.210 Nicotine dependence, cigarettes, uncomplicated; I25.10 Atherosclerotic heart disease of native coronary artery without angina pectoris; Z86.718 Personal history of other venous thrombosis and embolism
CPT/HCPCS: 36415; 36600; 71045; 78452; 80048; 80076; 80305; 81003; 82375; 82805; 83880; 84484; 85025; 93005; 93017; 93306; 93970; 94070; 94640; 94660; 94664; 94760; 98960; 99285; A9500; J0456; J0696; J1650; J1940; J2470; J2785; J2919; J3490; J7512